=== PATIENT | male | born 2000 | race Caucasian/White ===

== ENCOUNTER 2021-04-22 07:12 | Emergency (ER) | payer OTHER, SELFPAY ==
[2021-04-22 07:45] VITALS: BP 123/66; PULSE 90; RESP 14; TEMP 36.6; O2SAT 98; BMI 22.6
[2021-04-22 08:12] LABS: COVID-19 Test Positive (Negative); IDNOW Serial# 9DD0AD1C
[2021-04-22 08:18] LABS: Strep A Nucleic Acid Negative (Negative)
--- NOTE | 2021-05-02 08:14 | ED.GENADULT ---
HPI - General Adult General Chief complaint: Headache Stated complaint: sore throat, headache, body ache Time Seen by Provider: 04/22/21 09:37 History of Present Illness HPI narrative: Patient complains of headache body aches and feeling fatigued for 2-3 days, headache is mild it was gradual in onset, he is not sure if he had a fever but did feel warm, he has no cough no shortness of breath no vomiting no vision changes no dizziness no weakness no fainting Related Data Allergies Allergy/AdvReac Type Severity Reaction Status Date / Time No Known Allergies Allergy Unverified 05/19/20 19:27 [No Known Allergies*] Review of Systems Review of Systems: Positive for headache, body aches, fatigue Negatives are no chills no dizziness no weakness no fainting no feeling faint no neck pain no stiff neck no chest pain no shortness of breath no cough no sputum no abdominal pain no nausea vomiting or diarrhea no dysuria no skin rash, no difficulty breathing or swallowing Yes all other systems are reviewed and are negative PMFSH Past Medical History Source: nursing notes reviewed Medical History (Updated 04/22/21 @ 09:37 by EDUIN Lombardo) No known health problems Social History Social History Advance Directives: No Advance Directives Information Provided: No Physical Exam Vital Signs: Vital Signs: Last Vital Signs Temp 98 F 04/22/21 07:45 Pulse 90 04/22/21 07:45 Resp 14 04/22/21 07:45 BP 123/66 04/22/21 07:45 Pulse Ox 98 04/22/21 07:45 Body Mass Index 22.6 General appearance no acute distress Head is normocephalic atraumatic The nose is not congested and there is no sinus tenderness The pharynx is clear with no redness swelling or exudate The chest is clear to auscultation bilateral with full symmetric equal breath sounds Heart no murmur Abdomen soft nontender Extremities full full range of motion x4 Skin no rash Course Course Course Narrative: Well-appearing patient is positive for COVID and is discharged with warnings to wear mask and keep a distance and off work Medical Decision Making Lab Data Labs: Lab Results 04/22/21 04/22/21 Range/Units 07:52 07:52 COVID-19 (BASIM) Positive A (Negative) COVID-19 Clin Com See Note S. pyogenes GrpA NOHEMI Negative (Negative) Discharge Plan Discharge Clinical Impression: COVID-19 Patient Disposition: Home, Self-Care Additional Instructions: COVID test was positive This is very contagious so you need to keep a distance from people and use a mask if you are around them You should be off work until all symptoms are gone and a repeat COVID test is negative Return any time any worse condition or any concerns Stand Alone Forms: Work/School Release Interventions: ED Discharge Assessment Last Done: 04/22/21 09:46 Discharge Date/Time: 04/22/21 09:46
== END 2021-04-22 09:46 | disposition home or self-care (01) ==
PROVIDERS: Emergency Provider Internal Medicine
DX: U07.1 COVID-19 (principal); R51.9 Headache, unspecified; J02.9 Acute pharyngitis, unspecified
CPT/HCPCS: 36415; 87635; 87651; 99283

== ENCOUNTER 2021-06-02 18:15 | Emergency (ER) | payer MEDICAID, SELFPAY ==
[2021-06-02 18:52] VITALS: BP 129/64; PULSE 90; RESP 16; TEMP 36.5; O2SAT 99; BMI 25.0
--- NOTE | 2021-06-02 19:52 | ED_ITS ---
HPI - Eye Problem General Chief complaint: Eye Problems Stated complaint: sty Time Seen by Provider: 06/02/21 19:43 Source: patient History of Present Illness HPI Narrative: Patient complaining of a swelling to the right lower lid. No fever no chills no changes in vision. Patient has no other complaints. On no medication. Symptoms been ongoing for few days. Related Data Allergies Allergy/AdvReac Type Severity Reaction Status Date / Time No Known Allergies Allergy Verified 06/02/21 19:29 [No Known Allergies*] Review of Systems Review of Systems: No changes in vision no nausea no vomiting no headache Yes all other systems are reviewed and are negative [facility] Past Medical History Attestation statement: The following information was validated with the patient. Medical History No known health problems Social History Social History Advance Directives: No Physical Exam Vital Signs: Vital Signs: Last Vital Signs Temp 97.7 F 06/02/21 18:52 Pulse 90 06/02/21 18:52 Resp 16 06/02/21 18:52 BP 129/64 06/02/21 18:52 Pulse Ox 99 06/02/21 18:52 Body Mass Index 25.0 Appearance: Alert. Oriented X3. No acute distress. Eyes: Pupils equal, round and reactive to light. Sclera is white. There is a stye noted in the right lower lid on the lateral aspect. ENT: Pharynx normal. Neck: Normal inspection. Neck supple. No lymph nodes noted. No crepitus CVS: Normal heart rate and rhythm. Pulses normal. Normal S1 and S2 Respiratory: No respiratory distress. Breath sounds normal. No Wheezing. No rales Abdomen: Soft and nontender. No rigidity. No distention. good BS x4 Skin: Skin warm and dry. Normal skin color. Normal skin turgor. Extremities: No lower extremity edema. Neurovascular intact to all extremities. No Lacerations. No Rash Neuro: Oriented X 3. No motor deficit. No sensory deficit. Moving all extermities. No slurred speech MDM - Eye Problem MDM Narrative Medical decision making narrative: Will ask patient to use warm compress. Close follow-up on an outpatient basis. Visual acuity grossly intact. No other complaints. Patient in stable condition. Discharge Plan Discharge Clinical Impression: Sty Patient Disposition: Home, Self-Care Instructions: Sharita (ED) Referrals: Carlos Armstrong [Physician] - 2 days Destiny Stuart MD [Primary Care Provider] - 2 days
== END 2021-06-02 20:45 | disposition home or self-care (01) ==
PROVIDERS: Emergency Provider Emergency Medicine Emergency Medical Services; PCP Internal Medicine
DX: H00.013 Hordeolum externum right eye, unspecified eyelid (principal)
CPT/HCPCS: 99283

== ENCOUNTER 2021-09-03 18:45 | Emergency (ER) | payer MEDICAID, SELFPAY ==
[2021-09-03 19:24] VITALS: BP 119/80; PULSE 118; RESP 20; TEMP 37.1; O2SAT 100; BMI 22.6
[2021-09-03 19:47] LABS: Strep A Nucleic Acid Negative (Negative)
[2021-09-03 20:06] LABS: COVID-19 Test Negative (Negative)
--- NOTE | 2021-09-03 21:45 | ED_ITS ---
HPI - General Adult General Chief complaint: General Medical Stated complaint: fever sore throat Time Seen by Provider: 09/03/21 21:40 Source: patient Mode of arrival: ambulatory Limitations: no limitations History of Present Illness HPI narrative: Patient comes to the emergency room complaining of sore throat starting today. Patient also complaining of headache, mild body aches, subjective fever and chills. Patient denies chest pain, no shortness of breath, no calf pain. Related Data Allergies Allergy/AdvReac Type Severity Reaction Status Date / Time No Known Allergies Allergy Verified 06/02/21 19:29 [No Known Allergies*] Review of Systems Review of Systems: Constitutional : No Weight loss, complaining of subjective fever, chills, fatigue and generalized malaise ENT/Mouth : No Hearing loss, No Ear Pain, No Nasal Congestion, No Sinus Pain, No Hoarseness, complaining of sore throat, No Rhinorrhea, No Swallowing Difficulty Eyes: No Eye Pain, No Swelling, No Redness, No Foreign Body, No Discharge, No Vision Changes Cardiovascular : No Chest Pain, No SOB, No Dyspnea on Exertion, No Orthopnea, No Edema, No Palpitations Respiratory : No Cough, No Sputum, No Wheezing, No Smoke Exposure, No Dyspnea Gastrointestinal : No Nausea, No Vomiting, No Diarrhea, No Constipation, No abdominal Pain, No Hematochezia, No Melena Genitourinary : no irregular bleeding, No Dysuria, No Urinary Frequency, No Hematuria, No Urinary Incontinence, No Urgency, No Flank Pain, No Urinary Flow Changes, No Hesitancy Musculoskeletal : No joint pain, No Myalgias, No Joint Swelling Skin : No Skin Lesions, No rash Neuro : No Weakness, No Numbness, No Paresthesias, No Loss of Consciousness, No Dizziness, complaining of Headache Psych : No Anxiety/Panic, No Depression, No SI/HI/AH/VH, No Social Issues, Heme/Lymph: No Bruising, No Bleeding,No Lymphadenopathy Endocrine : No Polyuria, No Polydipsia, No Temperature Intolerance [facility] Past Medical History Medical History No known health problems Social History Social History Advance Directives: No Advance Directives Information Provided: Yes Physical Exam Vital Signs: Vital Signs: Last Vital Signs Temp 98.7 F 09/03/21 19:24 Pulse 118 H 09/03/21 19:24 Resp 20 09/03/21 19:24 BP 119/80 09/03/21 19:24 Pulse Ox 100 09/03/21 19:24 BMI result Body Mass Index 22.6 Const: Other: Appearance: Alert. Oriented X3. No acute distress. Well- appearing Eyes: Pupils equal, round and reactive to light. ENT: Pharynx erythematous, no vesicles, no exudates or abscesses. Neck: Normal inspection. Neck supple. No lymph nodes noted. No crepitus CVS: Normal heart rate and rhythm. Pulses normal. Normal S1 and S2 Respiratory: No respiratory distress. Breath sounds normal. No Wheezing. No rales Abdomen: Soft and nontender. No rigidity. No distention. Skin: Skin warm and dry. Normal skin color. Normal skin turgor. Extremities: No lower extremity edema. No Lacerations. No Rash Neuro: Oriented X 3. No motor deficit. No sensory deficit. Moving all extermities. No slurred speech. Course Course Course Narrative: Patient likely having viral pharyngitis. COVID and strep tests are negative. Patient was given 1 dose of dexamethasone p.o. and viscous lidocaine, 1 dose of Tylenol 650 mg Medical Decision Making Lab Data Labs: Lab Results 09/03/21 09/03/21 Range/Units 19:30 19:31 COVID-19 (BASIM) Negative (Negative) COVID-19 Clin Com See Note S. pyogenes GrpA NOHEMI Negative (Negative) Discharge Plan Discharge Clinical Impression: Acute viral pharyngitis Patient Disposition: Home, Self-Care Instructions: Pharyngitis (ED) Additional Instructions: Please follow-up with your primary care physician tomorrow. If you have any worsening or new symptoms, please return to the emergency room or call 911 Stand Alone Forms: Work/School Release
[2021-09-03] MEDS: dexAMETHasone sod phosphate 4 MG/ML VIAL 6 MG PO (22:04)
[2021-09-03] MEDS: Acetaminophen 325 MG TABLET 650 MG PO (22:04)
[2021-09-03] MEDS: Lidocaine HCl Viscous 2 % 15 ML SOLUTION MUCOUS MEM (22:04)
== END 2021-09-03 22:09 | disposition home or self-care (01) ==
PROVIDERS: Emergency Provider Emergency Medicine; PCP Internal Medicine
DX: J02.8 Acute pharyngitis due to other specified organisms (principal); Z20.822 Contact with and (suspected) exposure to COVID-19
CPT/HCPCS: 36415; 87635; 87651; 99283; J1100

== ENCOUNTER 2021-09-11 18:10 | Emergency (ER) | payer MEDICAID, SELFPAY | END 2021-09-11 18:52 | disposition left against medical advice (07) | PROVIDERS: Emergency Provider Emergency Medicine; PCP Internal Medicine | DX: R05.9 Cough, unspecified (principal); R06.02 Shortness of breath ==

== ENCOUNTER 2021-09-12 07:40 | Emergency (ER) | payer MEDICAID, SELFPAY ==
--- NOTE | ~2021-09-12 | XR_ITS ---
EXAMINATION: XR CHEST CLINICAL INFORMATION: Cough. COMPARISON: None. TECHNIQUE: 2 views of the chest were obtained. FINDINGS: No significant abnormality is noted involving the heart, lungs, mediastinum, bony thorax or soft tissues. XR/XR chest 2V IMPRESSION: No acute cardiopulmonary findings.
[2021-09-12 08:02] VITALS: BP 129/58; PULSE 88; RESP 18; TEMP 36.8; O2SAT 99; BMI 23.0
[2021-09-12 08:31] LABS: COVID-19 Test Negative (Negative); IDNOW Serial# 9DD0AD1C
--- NOTE | 2021-09-12 08:34 | ED.URI ---
HPI - URI/Sore Throat General Chief Complaint: Upper Respiratory Symptoms Stated Complaint: SOB cough Time Seen by Provider: 09/12/21 07:59 Source: patient Mode of arrival: ambulatory Limitations: no limitations History of Present Illness HPI Narrative: THIS IS A HEALTHY 20 YEARS OLD THE PATIENT PRESENTED TO THE EMERGENCY DEPARTMENT WITH A CHIEF COMPLAINT OF COUGH CONGESTION X2 DAYS, DENIES ANY FEVER CHILLS VOMITING MD elicited complaint: cough Onset (ago): day(s) (2) Consistency: constant Severity: moderate Description of mucous: clear Able to tolerate fluids by mouth: Yes Exacerbating factors: nothing Relieving factors: nothing Associated symptoms: denies other symptoms Related Data Allergies Allergy/AdvReac Type Severity Reaction Status Date / Time No Known Allergies Allergy Verified 06/02/21 19:29 [No Known Allergies*] Review of Systems Review of Systems: Yes all other systems are reviewed and are negative Constitutional: Constitutional: Reports no additional constitutional complaints, Denies chills and Denies fever(s) Cardiovascular: Cardiovascular: Reports no additional cardiovascular complaints Respiratory: Respiratory: Reports cough, Denies stridor and Denies wheezing Allergic/Immunologic: Allergic/Immunologic: Denies wheezing PMFSH Past Medical History Medical History No known health problems Social History Social History Advance Directives: No Advance Directives Information Provided: No Physical Exam Vital Signs: Vital Signs: Last Vital Signs Temp 98.2 F 09/12/21 08:02 Pulse 88 09/12/21 08:02 Resp 18 09/12/21 08:02 BP 129/58 L 09/12/21 08:02 Pulse Ox 99 09/12/21 08:02 BMI result Body Mass Index 23.0 Const: General: cooperative, healthy appearing, comfortable, no acute distress and well developed Nutritional Appearance: average body habitus Orientation/consciousness: patient oriented x3 HENMT: Head: Yes normal to inspection Face and sinus: Yes normal facial exam Mouth: Normal oral and palatal mucosa present Throat: Yes posterior oropharynx normal Neck: Neck: Yes normal visual inspection and Yes full ROM Chest: Chest palpation & inspection: normal inspection of the chest Resp: Effort & Inspection: normal respiratory effort Auscultation: clear to auscultation bilaterally Neuro: General: patient oriented x3 Course Reevaluation(s) Reevaluation #1: covid negative,CXR normal ,02 Sat 99% afebrile non toxic OK to d/c home MDM - URI/Sore Throat Lab Data Labs: Lab Results 09/12/21 Range/Units 08:08 COVID-19 (BASIM) Negative (Negative) COVID-19 Clin Com See Note Imaging Data Chest x-ray: Radiologist's impression: EXAMINATION: XR CHEST CLINICAL INFORMATION: Cough. COMPARISON: None. TECHNIQUE: 2 views of the chest were obtained. FINDINGS: No significant abnormality is noted involving the heart, lungs, mediastinum, bony thorax or soft tissues. XR/XR chest 2V IMPRESSION: No acute cardiopulmonary findings. Dictated By: Preethi Shea Signed By: <Electronically signed by Preethi? Monse in OV> 09/12/21 0845 DD/ 08 Discharge Plan Discharge Clinical Impression: Upper respiratory infection Patient Disposition: Home, Self-Care Instructions: Upper Respiratory Infection (ED) Referrals: [facility] [Primary Care Provider] - 2 days Stand Alone Forms: Work/School Release
== END 2021-09-12 09:38 | disposition home or self-care (01) ==
PROVIDERS: Emergency Provider Emergency Medicine
DX: J06.9 Acute upper respiratory infection, unspecified (principal); R06.02 Shortness of breath; R50.9 Fever, unspecified; R05.9 Cough, unspecified; Z20.822 Contact with and (suspected) exposure to COVID-19
CPT/HCPCS: 71046; 87635; 99283

== ENCOUNTER 2022-06-01 20:15 | Emergency (ER) | payer MEDICAID, SELFPAY ==
--- NOTE | ~2022-06-01 | CT_ITS ---
EXAMINATION: CT ABDOMEN AND PELVIS WITHOUT CONTRAST CLINICAL INFORMATION: Evaluate for obstruction. Pain. History of gastroschisis. COMPARISON: None TECHNIQUE: Multidetector volumetric imaging was performed from the superior aspect of the liver through the pubic symphysis. Sagittal and coronal reformatted images were obtained on the technologist's workstation. This CT examination was performed using dose optimization techniques as appropriate, variously including the following: *Automated exposure control *Adjustment of mA and/or kV according to patient size (this includes techniques or standardized protocols for targeted exams where dose is matched to indication/reason for exam; i.e. extremities or head) *Use of iterative reconstruction technique DLP: 402 mGy-cm FINDINGS: LUNG BASES: The visualized lung bases are unremarkable. LIVER, GALLBLADDER, AND BILIARY TREE: The liver is normal in size, shape, and attenuation. No focal hepatic lesion or biliary ductal dilatation is present. The gallbladder is unremarkable with no evidence of radiopaque gallstones, gallbladder wall thickening, or obvious pericholecystic inflammatory changes. PANCREAS: Unremarkable. SPLEEN: Unremarkable. ADRENAL GLANDS: Unremarkable. KIDNEYS AND URETERS: The kidneys are normal in size, shape, and attenuation. No hydronephrosis, hydroureter, or calculi seen. No perinephric stranding. BLADDER: Unremarkable. GASTROINTESTINAL TRACT: The colon is located in the left hemiabdomen where the small bowel is located in the right hemiabdomen. The duodenum does not clearly cross midline. No intestinal obstruction. Haziness of the small bowel mesentery within the right hemiabdomen. Normal appendix. Stomach unremarkable. ABDOMINAL WALL: Previous ventral hernia repair. LYMPH NODES: Normal. VASCULAR: Unremarkable. PELVIC VISCERA: Unremarkable. OSSEOUS STRUCTURES: No acute or suspicious osseous or maladies. CT/CT abdomen pelvis wo IV con IMPRESSION: * Intestinal malrotation. No evidence of obstruction or volvulus. * Haziness of the small bowel mesentery in the right hemiabdomen could represent a mild enteritis, or mesenteric panniculitis.
[2022-06-01 20:59] VITALS: BP 105/49; PULSE 90; RESP 18; TEMP 37.2; O2SAT 99; BMI 23.3
[2022-06-01 21:12] LABS: MANUAL DIFF FLAG NO
[2022-06-01 21:15] LABS: Appearance Urine Cloudy; Color Urine Yellow; Glucose Urine UA Negative (Negative); Leukocyte Esterase Urine Negative (Negative); Nitrite Urine Negative (Negative); Urine Blood Negative (Negative); Urine Ketones Negative (Negative); Urine Protein Negative (Neg-Trace)
[2022-06-01 21:15] LABS: Basophils Percent Auto 0.5 % (0-2); Eosinophils Absolute Auto 0.2 X10*3/uL (0.0-0.4); Eosinophils Percent Auto 3.1 % (0-4); Hematocrit 45.7 % (42.0-52.0); Hemoglobin 15.6 g/dl (14.0-18.0); Imm Gran Abs Auto 0.04 X10*3/uL (0.00-0.03); Imm Gran Pct Auto 0.5 % (0.0-0.4); Lymphocytes Absolute Auto 1.5 X10*3/uL (1.2-4.9); Lymphocytes Percent Auto 19.6 % (20-40); Mean Corpuscular HGB Conc 34.1 g/dl (31.0-36.0); Mean Corpuscular Hemoglobin 29.9 pg (27.0-33.0); Mean Corpuscular Volume 87.7 fL (80.0-98.0); Mean Platelet Volume 10.3 fL (9.4-12.4); Monocytes Absolute Auto 0.8 X10*3/uL (0.1-1.2); Monocytes Percent Auto 10.1 % (2-11); Neutrophils Absolute Auto 5.1 x10*3/uL (2.0-8.3); Neutrophils Percent Auto 66.2 % (45-73); Platelet Count 303 X10*3/uL (160-400); Red Blood Count 5.21 X10*6/uL (4.60-5.80); Red Cell Distribution Width 12.1 % (11.0-16.0); White Blood Count 7.7 X10*3/uL (4.8-10.8)
[2022-06-01 21:38] LABS: Alanine Aminotransferase 30 U/L (0-40); Albumin Level 4.5 g/dL (3.5-5.0); Alkaline Phosphatase 98 U/L (39-117); Anion Gap 15 (12-20); Aspartate Amino Transferase 20 U/L (5-37); Bilirubin Direct < 0.2 mg/dL (0.0-0.5); Bilirubin Total 0.3 mg/dL (0.0-1.0); Blood Urea Nitrogen 18 mg/dL (9-16); Calcium 9.9 mg/dL (8.4-10.2); Carbon Dioxide 25 mmol/L (22-29); Chloride 105 mmol/L (96-108); Creatinine Clr Calc Pharmacy 112.6; Estimated Glomerular Filt Rate > 60; Glucose Random 84 mg/dL (60-115); Lipase 33 U/L (8-78); Potassium 3.8 mmol/L (3.3-5.1); Sodium 141 mmol/L (135-145); Total Protein 7.5 g/dL (6.5-8.0)
[2022-06-02 01:44] VITALS: BP 130/71; PULSE 78; RESP 16; TEMP 36.8; O2SAT 100
--- NOTE | 2022-06-02 02:43 | ED.ABDPAIN ---
HPI - Abdominal Pain General Chief Complaint: Abdominal Pain Stated Complaint: Abd pain Time Seen by Provider: 06/02/22 02:37 Source: patient Mode of arrival: ambulatory Limitations: no limitations History of Present Illness HPI narrative: patient comes to emergency room complaining of diffuse abdominal pain. Patient states that he has had constipation and burning abdominal pain. [facility], he was diagnosed with GERD/gastritis, given a prescription of omeprazole. Patient states that the abdominal pain / distension gets very severe and he cannot work due to the pain. Patient has history of gastroschisis, does not have history of small-bowel obstructions in the past. Related Data Previous Rx's Medication Instructions Recorded polyethylene glycol 3350 17 17 g PO DAILY #119 grams 06/02/22 gram/dose oral powder (Miralax) Allergies Allergy/AdvReac Type Severity Reaction Status Date / Time No Known Allergies Allergy Verified 06/02/21 19:29 [No Known Allergies*] Review of Systems Review of Systems Constitutional : No Weight loss, No Fever, No Chills, No Night Sweats, No Fatigue, No Malaise ENT/Mouth : No Hearing loss, No Ear Pain, No Nasal Congestion, No Sinus Pain, No Hoarseness, No sore throat, No Rhinorrhea, No Swallowing Difficulty Eyes: No Eye Pain, No Swelling, No Redness, No Foreign Body, No Discharge, No Vision Changes Cardiovascular : No Chest Pain, No SOB, No Dyspnea on Exertion, No Orthopnea, No Edema, No Palpitations Respiratory : No Cough, No Sputum, No Wheezing, No Smoke Exposure, No Dyspnea Gastrointestinal : No Nausea, No Vomiting, No Diarrhea, Complaining of constipation, diffuse abdominal pain and distension Genitourinary : no irregular bleeding, No Dysuria, No Urinary Frequency, No Hematuria, No Urinary Incontinence, No Urgency, No Flank Pain, No Urinary Flow Changes, No Hesitancy Musculoskeletal : No joint pain, No Myalgias, No Joint Swelling Skin : No Skin Lesions, No rash Neuro : No Weakness, No Numbness, No Paresthesias, No Loss of Consciousness, No Dizziness, No Headache Psych : No Anxiety/Panic, No Depression, No SI/HI/AH/VH, No Social Issues, Heme/Lymph: No Bruising, No Bleeding,No Lymphadenopathy Endocrine : No Polyuria, No Polydipsia, No Temperature Intolerance [facility] Past Medical History Medical History (Updated 06/02/22 @ 02:49 by Miracle Vee MD) Gastroschisis, congenital No known health problems Social History Social History Advance Directives: No Advance Directives Information Provided: Yes Physical Exam ED Vital Signs: Vital Signs - 24 hr 06/01/22 20:59 06/02/22 01:44 Temperature 99.0 F 98.2 F Pulse Rate 90 78 Respiratory Rate 18 16 Blood Pressure 105/49 L 130/71 Pulse Oximetry 99 100 Oxygen Delivery Method Room Air Room Air BMI result Body Mass Index 23.3 Const Other: Appearance: Alert. Oriented X3. No acute distress. Eyes: Pupils equal, round and reactive to light. ENT: Pharynx normal. Neck: Normal inspection. Neck supple. No lymph nodes noted. No crepitus CVS: Normal heart rate and rhythm. Pulses normal. Normal S1 and S2 Respiratory: No respiratory distress. Breath sounds normal. No Wheezing. No rales Abdomen: Soft ,no rigidity, no distention, [id number] discomfort on palpation in all quadrants, no rebound, no guarding Skin: Skin warm and dry. Normal skin color. Normal skin turgor. Extremities: No lower extremity edema. No Lacerations. No Rash Neuro: Oriented X 3. No motor deficit. No sensory deficit. Moving all extremities. No slurred speech. CN 2 through 12 grossly intact Psych: calm, cooperative, normal affect Course Course Course Narrative: patient's labs are unremarkable. Due to patient's history gastroschisis, we will go ahead and order a CT scan to rule out obstruction. Patient already has and prescription of omeprazole. Is likely that patient has constipation given his history. CT scan is pending. Sign-out given to Dr. Carmela MESSINA - Abdominal Pain Lab Data Result diagrams: 06/01/22 21:03 06/01/22 21:03 Labs: Lab Results 06/01/22 06/01/22 06/01/22 Range/Units 21:03 21:03 21:07 WBC 7.7 (4.8-10.8) X10*3/uL RBC 5.21 (4.60-5.80) X10*6/uL Hgb 15.6 (14.0-18.0) g/dl Hct 45.7 (42.0-52.0) % MCV 87.7 (80.0-98.0) fL MCH 29.9 (27.0-33.0) pg MCHC 34.1 (31.0-36.0) g/dl RDW 12.1 (11.0-16.0) % Plt Count 303 (160-400) X10*3/uL MPV 10.3 (9.4-12.4) fL Immature Gran % (Auto) 0.5 H (0.0-0.4) % Neut % (Auto) 66.2 (45-73) % Lymph % (Auto) 19.6 L (20-40) % [place] % (Auto) 10.1 (2-11) % Eos % (Auto) 3.1 (0-4) % Baso % (Auto) 0.5 (0-2) % Lymph # (Auto) 1.5 (1.2-4.9) X10*3/uL [place] # (Auto) 0.8 (0.1-1.2) X10*3/uL Eos # (Auto) 0.2 (0.0-0.4) X10*3/uL Baso # (Auto) 0.0 (0.0-0.2) X10*3/uL Abs Immat Gran (auto) 0.04 H (0.00-0.03) X10*3/uL Absolute Neuts (auto) 5.1 (2.0-8.3) x10*3/uL Absolute Nucleated RBC 0.000 (0.0-0.012) X10*3/uL Nucleated RBC % (auto) 0.0 (0.0-0.2) /100WBC Sodium 141 (135-145) mmol/L Potassium 3.8 (3.3-5.1) mmol/L Chloride 105 (96-108) mmol/L Carbon Dioxide 25 (22-29) mmol/L Anion Gap 15 (12-20) BUN 18 H (9-16) mg/dL Creatinine 0.91 (0.5-1.4) mg/dL Estim Creat Clear Calc 112.6 Estimated GFR > 60 Random Glucose 84 (60-115) mg/dL Calcium 9.9 (8.4-10.2) mg/dL Total Bilirubin 0.3 (0.0-1.0) mg/dL Direct Bilirubin < 0.2 (0.0-0.5) mg/dL AST 20 (5-37) U/L ALT 30 (0-40) U/L Alkaline Phosphatase 98 (39-117) U/L Total Protein 7.5 (6.5-8.0) g/dL Albumin 4.5 (3.5-5.0) g/dL Lipase 33 (8-78) U/L Urine Color Yellow Urine Appearance Cloudy Urine pH 7.0 (5.0-9.0) Ur Specific [place] 1.020 (1.005-1.025) Urine Protein Negative (Neg-Trace) mg/dL Urine Glucose (UA) Negative (Negative) mg/dL Urine Ketones Negative (Negative) mg/dL Urine Blood Negative (Negative) Urine Nitrite Negative (Negative) Ur Leukocyte Esterase Negative (Negative) Discharge Plan Discharge Clinical Impression: Constipation, Gastritis Patient Disposition: Still a Patient Instructions: Gastritis (ED), Constipation (ED), Diet for Stomach Ulcers and Gastritis (ED) Additional Instructions: Please follow-up with your primary care physician tomorrow. If you have any worsening or new symptoms, please return to the emergency room or call 911 Prescriptions: New polyethylene glycol 3350 [Miralax] 17 gram/dose powder 17 g PO DAILY Qty: 119 0RF Rx Instructions: drink plenty of water with this medication and throughout the day Interventions: LWBS Worksheet Last Done: 06/01/22 23:34
[2022-06-02 04:21] VITALS: BP 116/70; PULSE 75; RESP 18; O2SAT 99
[2022-06-02 05:02] VITALS: BP 108/63; PULSE 74; RESP 16; TEMP 36.8; O2SAT 95
== END 2022-06-02 05:08 | disposition home or self-care (01) ==
PROVIDERS: Emergency Medicine; Emergency Provider Student in an Organized Health Care Education/Training Program
DX: K29.70 Gastritis, unspecified, without bleeding (principal); K59.00 Constipation, unspecified; Z79.899 Other long term (current) drug therapy
CPT/HCPCS: 36415; 74176; 80053; 81003; 82248; 83690; 85025; 99283; 99284

== ENCOUNTER 2022-12-29 10:41 | Emergency (ER) | payer MEDICAID, SELFPAY ==
[2022-12-29 10:45] VITALS: BP 134/68; PULSE 82; RESP 18; TEMP 36.8; O2SAT 98; BMI 23.3
--- NOTE | 2022-12-29 10:47 | ED.SKABFB ---
HPI - Skin/Abscess/Foreign Bdy General Chief complaint: Skin/Abscess/Foreign Body <EDUIN Forrester Last Filed: 12/29/22 10:50> Stated complaint: boil l elbow <EDUIN Forrester Last Filed: 12/29/22 10:50> Time Seen by Provider: 12/29/22 10:51 <EDUIN Forrester Last Filed: 12/29/22 10:50> Source: patient <EDUIN Arshad Last Filed: 12/29/22 11:13> Mode of arrival: ambulatory <EDUIN Arshad Last Filed: 12/29/22 11:13> Limitations: no limitations <EDUIN Arshad Last Filed: 12/29/22 11:13> History of Present Illness HPI narrative: 22-year-old male without significant medical history presents to the emergency department for evaluation of redness below his left elbow it has been going on for few days it started off as a small pimple, he popped it and since then it has been red, swollen and slightly tender. Patient denies fevers, chills, numbness, tingling, denies bug bites, nausea, vomiting, headache, vision changes, dizziness and weakness. <EDUIN Arshad Last Filed: 12/29/22 11:13> Related Data Home medications: Previous Rx's Medication Instructions Recorded polyethylene glycol 3350 17 17 g PO DAILY #119 grams 06/02/22 gram/dose oral powder (Miralax) cephalexin 500 mg tablet 500 mg PO Q6H 10 days #40 tabs 12/29/22 doxycycline hyclate 100 mg capsule 100 mg PO BID 10 days #20 caps 12/29/22 <EDUIN Forrester Last Filed: 12/29/22 10:50> Allergies/Adverse reactions: Allergies Allergy/AdvReac Type Severity Reaction Status Date / Time No Known Allergies Allergy Verified 06/02/21 19:29 [No Known Allergies*] <EDUIN Forrester Last Filed: 12/29/22 10:50> Review of Systems Review of Systems: Constitutional : No Fever, No Chills, Cardiovascular : No Chest Pain, No SOB Respiratory : No Dyspnea Gastrointestinal : No abdominal pain Musculoskeletal : No Joint Swelling Skin : + rash, No skin laceration Neuro : No Weakness, No Numbness Psych : No SI/HI <EDUIN Arshad - Last Filed: 12/29/22 11:13> Yes all other systems are reviewed and are negative <EDUIN Arshad - Last Filed: 12/29/22 11:13> [facility] [place] Past Medical History Attestation statement: The following information was validated with the patient. <EDUIN Arshad - Last Filed: 12/29/22 11:13> Source: old records reviewed and nursing notes reviewed <EDUIN Arshad - Last Filed: 12/29/22 11:13> Medical History: Medical History Gastroschisis, congenital No known health problems <EDUIN Forrester - Last Filed: 12/29/22 10:50> Social History Social History: Social History Advance Directives: No Advance Directives Information Provided: No <EDUIN Forrester - Last Filed: 12/29/22 10:50> Physical Exam Vital Signs: Vital Signs: Last Vital Signs Temp 98.3 F 12/29/22 10:45 Pulse 82 12/29/22 10:45 Resp 18 12/29/22 10:45 BP 134/68 12/29/22 10:45 Pulse Ox 98 12/29/22 10:45 O2 Del Method Room Air 12/29/22 10:45 BMI result Body Mass Index 23.3 <EDUIN Forrester - Last Filed: 12/29/22 10:50> Vital Signs: Last Vital Signs Temp 98.3 F 12/29/22 10:45 Pulse 82 12/29/22 10:45 Resp 18 12/29/22 10:45 BP 134/68 12/29/22 10:45 Pulse Ox 98 12/29/22 10:45 O2 Del Method Room Air 12/29/22 10:45 BMI result Body Mass Index 23.3 vss <EDUIN Arshad - Last Filed: 12/29/22 11:13> Appearance: Alert.? Oriented X3.? No acute distress.? Head: Normocephalic, atraumatic, no step-offs or deformities Eyes: Pupils equal, round and reactive to light.? CVS: Normal heart rate and rhythm.? Pulses normal.? Respiratory: No respiratory distress.? Breath sounds normal.? Abdomen: Soft and nontender.? Skin: Skin warm and dry.? Normal skin color.? Normal skin turgor.?+ there is a 4 cm very 4 cm area of erythema 2 cm below the left olecranon, there appears to be induration in the center, possible forming abscess. No evidence of draining. Extremities: No lower extremity edema.? No calf ttp. 5/5 strength to bilateral upper and lower extremities. Full range of motion to bilateral elbows, pain-free. Neuro: Oriented X 3.? No motor deficit.? No sensory deficit. CN 2-12 intact <EDUIN Arshad - Last Filed: 12/29/22 11:13> Course Course Course Narrative: RME - This is a 22 yo M who presents to the ER with complaints of left arm ?abscess x 2 days. No recent injury or trauma. No fevers. has had some drainage from the area. VSS, patient is afebrile. Pt stable to return to the waiting room until a room becomes available. <EDUIN Forrester - Last Filed: 12/29/22 10:50> Reevaluation(s) Reevaluation #1: Educated patient on diagnosis and treatment plan, answered all question, patient verbalizes understanding. At this time patient will be discharged home, advised to return with new or worsening symptoms. Educated on worrisome signs and symptoms and when to return. At this time I feel comfortable discharge home. <EDUIN Arshad - Last Filed: 12/29/22 11:13> Time: 11:13 <EDUIN Arshad - Last Filed: 12/29/22 11:13> Medical Decision Making Medical Decision Making MDM Narrative: 1112 22-year-old male presents with concerns that he may have a developing abscess to the left elbow been going on for the past few days worsening. Physical exam significant for there is a 4 cm very 4 cm area of erythema 2 cm below the left olecranon, there appears to be induration in the center, possible forming abscess. No evidence of draining. Likely cellulitis versus developing abscess. No fluctuance on exam therefore low suspicion for current abscess that requires draining. No signs of septic joint, threatened limb, neurovascular compromise. Unlikely Hakeem Samson syndrome, TPN, gangrene. Plan, p.o. antibiotics home, warm compresses and PCP follow-up <EDUIN Arshad Last Filed: 12/29/22 11:13> Differential Diagnosis Differential Diagnoses: The differential diagnosis associated with the presentation includes <EDUIN Arshad Last Filed: 12/29/22 11:13> Likely cellulitis versus developing abscess. No fluctuance on exam therefore low suspicion for current abscess that requires draining. No signs of septic joint, threatened limb, neurovascular compromise. Unlikely Hakeem Samson syndrome, TPN, gangrene. <EDUIN Arshad Last Filed: 12/29/22 11:13> Admission/Observation Consideration of admission/observation: Escalation of care including admission/observation considered <EDUIN Arshad - Last Filed: 12/29/22 11:13> Prescription Management I considered prescription management with: Antibiotic <EDUIN Arshad Last Filed: 12/29/22 11:13> Core Measures AMI core measures followed: Yes <EDUIN Arshad - Last Filed: 12/29/22 11:13> Measure exclusions: not indicated <EDUIN Arshad Last Filed: 12/29/22 11:13> Discharge Plan Discharge Clinical Impression: Cellulitis <EDUIN Forrester Last Filed: 12/29/22 10:50> Patient Disposition: Home, Self-Care <EDUIN Forrester Last Filed: 12/29/22 10:50> Instructions: Cellulitis (ED), Warm Compress or Soak (ED) <EDUIN Forrester Last Filed: 12/29/22 10:50> Additional Instructions: Take your medications as prescribed. If you were prescribed antibiotics today, it is important that you take your medication to their entirety, do not skip any doses, do not finish them early. Follow-up with your primary care provider this week. Return to the emergency department with new or worsening symptoms. Such as fevers, chills, chest pain, shortness of breath, nausea, vomiting, dizziness, headache, vision changes, lethargy In case of emergency call 911 Apply warm compresses to the affected area 2 to 3 times a day. Return if redness worsens and goes beyond the marker Doxycycline antibiotic sent to her pharmacy it should be taken with food, please avoid direct sunlight with this antibiotic it can cause an adverse skin reaction and skin sensitivity <EDUIN Forrester - Last Filed: 12/29/22 10:50> Prescriptions: New doxycycline hyclate 100 mg capsule 100 mg PO BID 10 Days Qty: 20 0RF cephalexin 500 mg tablet 500 mg PO Q6H 10 Days Qty: 40 0RF No Action polyethylene glycol 3350 [Miralax] 17 gram/dose powder 17 g PO DAILY Qty: 119 0RF Rx Instructions: drink plenty of water with this medication and throughout the day <EDUIN Forrester Last Filed: 12/29/22 10:50> Referrals: [facility] [Primary Care Provider] - 2 days <EDUIN Forrester Last Filed: 12/29/22 10:50>
== END 2022-12-29 12:01 | disposition home or self-care (01) ==
PROVIDERS: Emergency Provider Emergency Medicine
DX: L03.114 Cellulitis of left upper limb (principal); Z79.899 Other long term (current) drug therapy
CPT/HCPCS: 99282; 99283

== ENCOUNTER 2023-03-22 06:55 | Emergency (ER) | payer MEDICAID, SELFPAY ==
--- NOTE | ~2023-03-22 | XR_ITS ---
EXAMINATION: XR CHEST CLINICAL INFORMATION: Fever and cough. Question pneumonia. COMPARISON: 09/12/2021 TECHNIQUE: Frontal view of the chest was obtained. FINDINGS: Cardiac leads overlie the chest. The lungs are well expanded. There is no focal consolidation, edema, or effusion. No pneumothorax. The cardiomediastinal silhouette is within normal limits. No acute osseous abnormality. XR/XR chest 1V IMPRESSION: Clear lungs.
[2023-03-22 07:01] VITALS: BP 136/71; PULSE 131; RESP 20; TEMP 39; O2SAT 96
[2023-03-22 07:07] VITALS: BP 116/69; PULSE 125; PULSE 127; RESP 18; TEMP 39.6; O2SAT 97; BMI 23.7
--- NOTE | 2023-03-22 07:18 | PC.NURSE ---
Alert and oriented, arrived from home complaining of weakness, fatigue, total body aches, fever, sore throat, and cough. Denies sob, headache, or chest pain. Denies sick contact. HR 130, provider aware. sinus tachy on monitor. Strep/flu/covid swabs obatained
[2023-03-22 07:30] LABS: COVID-19 Test Positive (Negative); IDNOW Serial# BCCEAD1C
[2023-03-22 07:37] LABS: IDNOW Serial# 08D9AD1C; Strep A Nucleic Acid Negative (Negative)
[2023-03-22 07:42] LABS: MANUAL DIFF FLAG NO
[2023-03-22 07:44] LABS: Basophils Percent Auto 0.4 % (0-2); Eosinophils Absolute Auto 0.1 X10*3/uL (0.0-0.4); Eosinophils Percent Auto 1.1 % (0-4); Hematocrit 49.7 % (42.0-52.0); Hemoglobin 16.8 g/dl (14.0-18.0); Imm Gran Abs Auto 0.04 X10*3/uL (0.00-0.03); Imm Gran Pct Auto 0.6 % (0.0-0.4); Lymphocytes Absolute Auto 0.4 X10*3/uL (1.2-4.9); Lymphocytes Percent Auto 5.7 % (20-40); Mean Corpuscular HGB Conc 33.8 g/dl (31.0-36.0); Mean Corpuscular Hemoglobin 29.3 pg (27.0-33.0); Mean Corpuscular Volume 86.7 fL (80.0-98.0); Mean Platelet Volume 9.9 fL (9.4-12.4); Monocytes Absolute Auto 0.8 X10*3/uL (0.1-1.2); Monocytes Percent Auto 11.1 % (2-11); Neutrophils Absolute Auto 5.8 x10*3/uL (2.0-8.3); Neutrophils Percent Auto 81.1 % (45-73); Platelet Count 283 X10*3/uL (160-400); Red Blood Count 5.73 X10*6/uL (4.60-5.80); White Blood Count 7.2 X10*3/uL (4.8-10.8)
[2023-03-22] MEDS: 0.9 % Sodium Chloride 1,000 ML 999 ML IV (07:47)
[2023-03-22] MEDS: Acetaminophen 325 MG TABLET 975 MG PO (07:50)
[2023-03-22] MEDS: Ketorolac Tromethamine 30 MG/ML VIAL IVPUSH (07:50)
[2023-03-22 08:04] LABS: Alanine Aminotransferase 36 U/L (0-40); Albumin Level 5.1 g/dL (3.5-5.0); Alkaline Phosphatase 108 U/L (39-117); Anion Gap 16 (12-20); Aspartate Amino Transferase 27 U/L (5-37); Bilirubin Total 0.4 mg/dL (0.0-1.0); Blood Urea Nitrogen 11 mg/dL (9-16); Calcium 10.7 mg/dL (8.4-10.2); Carbon Dioxide 25 mmol/L (22-29); Chloride 99 mmol/L (96-108); Creatinine Clr Calc Pharmacy 94.9; Estimated Glomerular Filt Rate > 60; Glucose Random 105 mg/dL (60-115); Potassium 3.6 mmol/L (3.3-5.1); Sodium 136 mmol/L (135-145); Total Protein 9.3 g/dL (6.5-8.0)
[2023-03-22 08:17] LABS: IDNOW Serial# 9DB6401D; Influenza A Negative (Negative); Influenza B2 Negative (Negative)
--- NOTE | 2023-03-22 10:11 | ED_ITS ---
HPI - General Adult General Chief complaint: General Medical Stated complaint: Fever/Sore throat Time Seen by Provider: 03/22/23 07:06 Source: patient Mode of arrival: ambulatory Limitations: no limitations History of Present Illness HPI narrative: 22-year-old male healthy presents to ED for coughing, fever, sore throat since this morning. Patient states a girlfriend has similar symptoms. Patient denies any chest pain or shortness of breath. Patient denies any recent travel outside the country. Related Data Previous Rx's Medication Instructions Recorded polyethylene glycol 3350 17 17 g PO DAILY #119 grams 06/02/22 gram/dose oral powder (Miralax) cephalexin 500 mg tablet 500 mg PO Q6H 10 days #40 tabs 12/29/22 doxycycline hyclate 100 mg capsule 100 mg PO BID 10 days #20 caps 12/29/22 naproxen 500 mg tablet 500 mg PO BID PRN pain 7 days #14 03/22/23 tabs Allergies Allergy/AdvReac Type Severity Reaction Status Date / Time No Known Allergies Allergy Verified 06/02/21 19:29 [No Known Allergies*] Review of Systems Review of Systems: Fever, coughing, sore throat Yes all other systems are reviewed and are negative PMFSH Past Medical History Medical History Gastroschisis, congenital No known health problems Social History Social History Alcohol intake: never Smoked in Last 30 Days: No Use of substances other than those prescribed or required for medical reasons: No Advance Directives: No Advance Directives Information Provided: Yes Physical Exam ED Vital Signs: Vital Signs - 24 hr 03/22/23 07:01 03/22/23 07:07 03/22/23 07:07 Temperature 102.2 F H 103.2 F H 103.2 F H Pulse Rate 131 H 125 H 127 H Respiratory Rate 20 18 18 Blood Pressure 136/71 116/69 116/69 Pulse Oximetry 96 97 97 Oxygen Delivery Method Room Air Room Air Room Air BMI result Body Mass Index 23.7 Const General: cooperative, healthy appearing, comfortable, no acute distress, well developed, alert, awake and Physically active Orientation/consciousness: oriented to person, oriented to place, oriented to time and patient oriented x3 HENMT Head: Yes normal to inspection, Yes No palpable skull fracture present, Yes normocephalic, Yes atraumatic and No abrasion Ears: hearing grossly normal bilaterally, external ears normal, TM's normal bilaterally, TM normal on the right, TM normal on the left, EAC's normal, mastoids normal and no periauricular adenopathy Face and sinus: Yes normal facial exam, Yes sinuses nontender and Yes face symmetric Mouth: Normal oral and palatal mucosa present, lip normal and tongue normal Throat: Yes posterior oropharynx normal, Yes tonsils normal and Yes uvula midline Eyes General: appearance normal, both eyes and all related structures Neck Neck: Yes normal visual inspection, Yes full ROM, Yes no lymphadenopathy, Yes no meningeal signs, Yes trachea midline, Yes supple, No anterior neck swelling and No tender Chest Chest palpation & inspection: normal inspection of the chest and normal palpation of entire chest wall Resp Effort & Inspection: normal respiratory effort and able to speak in complete sentences Auscultation: clear to auscultation bilaterally Cardio Jugular venous distension: no JVD Heart sounds: S1 normal heart sound present and S2 normal heart sound present GI Inspection: Yes normal to inspection and No abdominal wall ecchymosis Palpation (GI): Soft to palpation, not firm, nontender, no guarding and not rigid General: No CVA tenderness and Yes no CVA tenderness Back/Spine/Pelvis Back: no CVA tenderness, No CVA tenderness and No back tenderness Skin General skin exam: no rashes or lesions noted and elasticity normal Neuro General: oriented to person, oriented to place, oriented to time, patient oriented x3, gait normal, tone normal, moves all extremities, Normal light touch and pain sensation, no meningeal signs, no focal motor deficits, CN's II-XI intact bilaterally and normal sensation to monofilament Extrem General: Yes normal to inspection and Yes full ROM Psych Appearance: grossly normal, well kempt and not disheveled Medications Administered Discontinued Medications Generic Name Dose Route Start Last Admin Trade Name Kimaniq PRN Reason Stop Dose Admin Acetaminophen 975 mg 03/22/23 07:20 03/22/23 07:50 Acetaminophen 325 Mg Tablet PO 03/22/23 07:21 975 mg ONCE ONE Administration Sodium Chloride 1,000 mls @ 999 mls/hr 03/22/23 07:18 03/22/23 10:44 Ns IV 07/21/23 08:18 Infused .Q1H1M STA Infusion Sodium Chloride 1,000 mls @ 999 mls/hr 03/22/23 07:30 03/22/23 10:57 Ns IV 03/22/23 08:30 Not Given .Q1H1M RAEANN Ketorolac Tromethamine 30 mg 03/22/23 07:20 03/22/23 07:50 Ketorolac Tromethamine 30 Mg/Ml Vial IVPUSH 03/22/23 07:21 30 mg ONCE ONE Administration Medical Decision Making Medical Decision Making [facility] Narrative: 22-year-old male presents to ED for sore throat, fever, cough, malaise, and body aches. Patient's girlfriend have similar symptoms. Patient febrile tachycardic. Most likely viral. Patient positive COVID. Chest x-ray negative pneumonia. Influenza strep test negative. Lactic acid negative. Patient not septic. Differential Diagnosis Differential Diagnoses: The differential diagnosis associated with the presentation includes (Pneumonia, COVID, flu, sore throat, peritonsillar abscess, pharyngitis, Phani's angina, retropharyngeal abscess,) Admission/Observation Consideration of admission/observation: Escalation of care including admission/observation considered Lab Data [facility] Lab Attestation statement: I reviewed the patient's lab results. 03/22/23 07:39 03/22/23 07:39 Labs: Lab Results 03/22/23 03/22/23 03/22/23 Range/Units 07:17 07:17 07:17 WBC (4.8-10.8) X10*3/uL RBC (4.60-5.80) X10*6/uL Hgb (14.0-18.0) g/dl Hct (42.0-52.0) % MCV (80.0-98.0) fL MCH (27.0-33.0) pg MCHC (31.0-36.0) g/dl RDW (11.0-16.0) % Plt Count (160-400) X10*3/uL MPV (9.4-12.4) fL Immature Gran % (Auto) (0.0-0.4) % Neut % (Auto) (45-73) % Lymph % (Auto) (20-40) % Snyder % (Auto) (2-11) % Eos % (Auto) (0-4) % Baso % (Auto) (0-2) % Lymph # (Auto) (1.2-4.9) X10*3/uL Snyder # (Auto) (0.1-1.2) X10*3/uL Eos # (Auto) (0.0-0.4) X10*3/uL Baso # (Auto) (0.0-0.2) X10*3/uL Abs Immat Gran (auto) (0.00-0.03) X10*3/uL Absolute Neuts (auto) (2.0-8.3) x10*3/uL Absolute Nucleated RBC (0.0-0.012) X10*3/uL Nucleated RBC % (auto) (0.0-0.2) /100WBC Sodium (135-145) mmol/L Potassium (3.3-5.1) mmol/L Chloride (96-108) mmol/L Carbon Dioxide (22-29) mmol/L Anion Gap (12-20) BUN (9-16) mg/dL Creatinine (0.5-1.4) mg/dL Estim Creat Clear Calc Estimated GFR Random Glucose (60-115) mg/dL Lactic Acid (0.5-2.0) mmol/L Calcium (8.4-10.2) mg/dL Total Bilirubin (0.0-1.0) mg/dL AST (5-37) U/L ALT (0-40) U/L Alkaline Phosphatase (39-117) U/L Total Protein (6.5-8.0) g/dL Albumin (3.5-5.0) g/dL COVID-19 (BASIM) Positive A (Negative) COVID-19 Clin Com See Note Influenza Type A (NOHEMI) Cancelled Influenza Type B (NOHEMI) Cancelled Influenza A & B Note Cancelled S. pyogenes GrpA NOHEMI Negative (Negative) 03/22/23 03/22/23 03/22/23 Range/Units 07:39 07:39 07:39 WBC 7.2 (4.8-10.8) X10*3/uL RBC 5.73 (4.60-5.80) X10*6/uL Hgb 16.8 (14.0-18.0) g/dl Hct 49.7 (42.0-52.0) % MCV 86.7 (80.0-98.0) fL MCH 29.3 (27.0-33.0) pg MCHC 33.8 (31.0-36.0) g/dl RDW 12.0 (11.0-16.0) % Plt Count 283 (160-400) X10*3/uL MPV 9.9 (9.4-12.4) fL Immature Gran % (Auto) 0.6 H (0.0-0.4) % Neut % (Auto) 81.1 H (45-73) % Lymph % (Auto) 5.7 L (20-40) % Snyder % (Auto) 11.1 H (2-11) % Eos % (Auto) 1.1 (0-4) % Baso % (Auto) 0.4 (0-2) % Lymph # (Auto) 0.4 L (1.2-4.9) X10*3/uL Snyder # (Auto) 0.8 (0.1-1.2) X10*3/uL Eos # (Auto) 0.1 (0.0-0.4) X10*3/uL Baso # (Auto) 0.0 (0.0-0.2) X10*3/uL Abs Immat Gran (auto) 0.04 H (0.00-0.03) X10*3/uL Absolute Neuts (auto) 5.8 (2.0-8.3) x10*3/uL Absolute Nucleated RBC 0.000 (0.0-0.012) X10*3/uL Nucleated RBC % (auto) 0.0 (0.0-0.2) /100WBC Sodium 136 (135-145) mmol/L Potassium 3.6 (3.3-5.1) mmol/L Chloride 99 (96-108) mmol/L Carbon Dioxide 25 (22-29) mmol/L Anion Gap 16 (12-20) BUN 11 (9-16) mg/dL Creatinine 1.07 (0.5-1.4) mg/dL Estim Creat Clear Calc 94.9 Estimated GFR > 60 Random Glucose 105 (60-115) mg/dL Lactic Acid 1.0 (0.5-2.0) mmol/L Calcium 10.7 H D (8.4-10.2) mg/dL Total Bilirubin 0.4 (0.0-1.0) mg/dL AST 27 (5-37) U/L ALT 36 (0-40) U/L Alkaline Phosphatase 108 (39-117) U/L Total Protein 9.3 H (6.5-8.0) g/dL Albumin 5.1 H (3.5-5.0) g/dL COVID-19 (BASIM) (Negative) COVID-19 Clin Com Influenza Type A (NOHEMI) Influenza Type B (NOHEMI) Influenza A & B Note S. pyogenes GrpA NOHEMI (Negative) 03/22/23 Range/Units 07:46 WBC (4.8-10.8) X10*3/uL RBC (4.60-5.80) X10*6/uL Hgb (14.0-18.0) g/dl Hct (42.0-52.0) % MCV (80.0-98.0) fL MCH (27.0-33.0) pg MCHC (31.0-36.0) g/dl RDW (11.0-16.0) % Plt Count (160-400) X10*3/uL MPV (9.4-12.4) fL Immature Gran % (Auto) (0.0-0.4) % Neut % (Auto) (45-73) % Lymph % (Auto) (20-40) % Snyder % (Auto) (2-11) % Eos % (Auto) (0-4) % Baso % (Auto) (0-2) % Lymph # (Auto) (1.2-4.9) X10*3/uL Snyder # (Auto) (0.1-1.2) X10*3/uL Eos # (Auto) (0.0-0.4) X10*3/uL Baso # (Auto) (0.0-0.2) X10*3/uL Abs Immat Gran (auto) (0.00-0.03) X10*3/uL Absolute Neuts (auto) (2.0-8.3) x10*3/uL Absolute Nucleated RBC (0.0-0.012) X10*3/uL Nucleated RBC % (auto) (0.0-0.2) /100WBC Sodium (135-145) mmol/L Potassium (3.3-5.1) mmol/L Chloride (96-108) mmol/L Carbon Dioxide (22-29) mmol/L Anion Gap (12-20) BUN (9-16) mg/dL Creatinine (0.5-1.4) mg/dL Estim Creat Clear Calc Estimated GFR Random Glucose (60-115) mg/dL Lactic Acid (0.5-2.0) mmol/L Calcium (8.4-10.2) mg/dL Total Bilirubin (0.0-1.0) mg/dL AST (5-37) U/L ALT (0-40) U/L Alkaline Phosphatase (39-117) U/L Total Protein (6.5-8.0) g/dL Albumin (3.5-5.0) g/dL COVID-19 (BASIM) (Negative) COVID-19 Clin Com Influenza Type A (NOHEMI) Negative Influenza Type B (NOHEMI) Negative Influenza A & B Note See Note S. pyogenes GrpA NOHEMI (Negative) Independent Interpretation I performed an independent interpretation of an: Plain X-Ray Radiology Impression Discussion of test interpretation with radiology: I have reviewed the radiolog ist's reading. Independent Historian Clinical information obtained from an independent historian. History obtained from or confirmed by: Other (Patient) External Record Review External record reviewed: Other (ED visit) Prescription Management I considered prescription management with: Pain Medication Discharge Plan Discharge Clinical Impression: COVID-19 Patient Disposition: Home, Self-Care Instructions: COVID-19 (Coronavirus Disease 2019) (ED) Additional Instructions: You are positive for COVID. Return to the ED immediately for any chest pain, shortness of breath, coughing up blood, weakness, dizziness, calf pain, or any other concerning symptoms. Please follow up with primary care provider. Prescriptions: New naproxen 500 mg tablet 500 mg PO BID PRN (Reason: pain) 7 Days Qty: 14 0RF No Action polyethylene glycol 3350 [Miralax] 17 gram/dose powder 17 g PO DAILY Qty: 119 0RF Rx Instructions: drink plenty of water with this medication and throughout the day doxycycline hyclate 100 mg capsule 100 mg PO BID 10 Days Qty: 20 0RF cephalexin 500 mg tablet 500 mg PO Q6H 10 Days Qty: 40 0RF Stand Alone Forms: Work/School Release Interventions: ED Discharge Assessment Last Done: 03/22/23 10:56 Discharge Date/Time: 03/22/23 10:57 Print Language: Tamazight
[2023-03-22 10:56] VITALS: TEMP 37.1
--- NOTE | 2023-03-22 10:57 | PC.NURSE ---
Patient reports feeling much better, temp 98.8, HR 100. Discharge instruction reviewed with patient and significant other who verbalized understanding
== END 2023-03-22 10:57 | disposition home or self-care (01) ==
PROVIDERS: Physician Assistant; Emergency Provider Emergency Medicine
DX: U07.1 COVID-19 (principal); R50.9 Fever, unspecified
CPT/HCPCS: 36415; 71045; 80053; 83605; 85025; 87040; 87502; 87635; 87651; 96361; 96374; 99284; J1885

== ENCOUNTER 2023-06-27 16:11 | Emergency (ER) | payer MEDICAID, SELFPAY ==
[2023-06-27 16:40] VITALS: BP 116/73; PULSE 110; RESP 18; TEMP 36.9; O2SAT 98; BMI 23.3
[2023-06-27 17:23] LABS: IDNOW Serial# 6674DD1D; Strep A Nucleic Acid Negative (Negative)
[2023-06-27 17:24] LABS: COVID-19 Test Negative (Negative); IDNOW Serial# BCCEAD1C
--- NOTE | 2023-06-27 17:31 | ED_ITS ---
HPI - General Adult General Chief complaint: Upper Respiratory Symptoms Stated complaint: nasal congestion,cough,vomiting Time Seen by Provider: 06/27/23 17:31 Source: patient, RN notes reviewed and old records reviewed Mode of arrival: ambulatory Limitations: no limitations History of Present Illness HPI narrative: 22-year-old male presents for evaluation of flu-like symptoms. He complains of a headache, sore throat congestion, facial pain. Patient reports he vomited once this morning. All the symptoms started this morning. He has not tried any [id number] medications Denies any shortness of breath, abdominal pain Denies any sick contacts or recent travel Related Data Previous Rx's Medication Instructions Recorded polyethylene glycol 3350 17 17 g PO DAILY #119 grams 06/02/22 gram/dose oral powder (Miralax) cephalexin 500 mg tablet 500 mg PO Q6H 10 days #40 tabs 12/29/22 doxycycline hyclate 100 mg capsule 100 mg PO BID 10 days #20 caps 12/29/22 naproxen 500 mg tablet 500 mg PO BID PRN pain 7 days #14 03/22/23 tabs ondansetron 4 mg disintegrating 4 mg PO Q8H PRN nausea and 06/27/23 tablet vomiting #20 tabs Allergies Allergy/AdvReac Type Severity Reaction Status Date / Time No Known Allergies Allergy Verified 06/27/23 16:39 [No Known Allergies*] Review of Systems Constitutional: Constitutional: Denies chills, Denies fever(s) and Reports headache(s) ENT: Denies vertigo, Denies dizziness, Reports headache(s), Reports sinus pressure and Reports sore throat Cardiovascular: Cardiovascular: Denies chest pain and Denies dyspnea Respiratory: Respiratory: Denies cough and Denies dyspnea Gastrointestinal: Gastrointestinal: Denies abdominal pain, Denies diarrhea, Denies loose stools, Reports nausea and Reports vomiting Neurologic: Denies vertigo, Denies dizziness and Reports headache(s) [facility] Past Medical History Medical History Gastroschisis, congenital No known health problems Social History Social History Alcohol intake: never Physical Exam ED Vital Signs: Vital Signs - 24 hr 06/27/23 16:40 Temperature 98.4 F Pulse Rate 110 H Respiratory Rate 18 Blood Pressure 116/73 Pulse Oximetry 98 Oxygen Delivery Method Room Air BMI result Body Mass Index 23.3 Const General: healthy appearing, comfortable, no acute distress, alert and awake Nutritional Appearance: well nourished Orientation/consciousness: patient oriented x3 HENMT Head: Yes normocephalic and Yes atraumatic Throat: Yes posterior oropharynx normal Eyes Eyelids: Yes eyelids normal Conjunctivae: conjunctivae normal Sclerae: sclerae normal Corneas: corneas normal Pupils: Equal, round and reactive pupils present EOM: EOMs intact bilaterally Neck Neck: Yes full ROM Resp Effort & Inspection: normal respiratory effort, able to speak in complete sentences, no audible wheezes and not labored Auscultation: clear to auscultation bilaterally Cardio Rate: regular rate Rhythm: regular rhythm GI Inspection: No distended Palpation (GI): Soft to palpation, not firm, nontender, no guarding and not rig id Skin General skin exam: no rashes or lesions noted and elasticity normal Neuro General: patient oriented x3 Cranial nerves: Yes Equal, round and reactive pupils present and Yes Bilaterally intact EOM present Cognition (Neuro): normal cognition Extrem Other: Moving all extremities well without any obvious deformities Medical Decision Making Medical Decision Making MDM Narrative: 22-year-old healthy male presents for evaluation of flu-like symptoms. He tested negative for influenza, COVID-19 and strep throat. He was very slightly tachycardic to 110 of this is likely related to a viral illness which explains office symptoms. Lungs are clear to auscultation, abdominal exam is benign reported airway is widely patent apparently not see any indication for further emergent workup or testing. He will be discharged with symptomatic care. Differential Diagnosis Differential Diagnoses: The differential diagnosis associated with the presentation includes Viral syndrome Upper respiratory infection COVID-19 Influenza Strep pharyngitis Lab Data Labs: Lab Results 06/27/23 Range/Units 16:59 COVID-19 (BASIM) Negative (Negative) COVID-19 Clin Com See Note S. pyogenes GrpA NOHEMI Negative (Negative) Discharge Plan Discharge Clinical Impression: Upper respiratory infection Patient Disposition: Home, Self-Care Instructions: Upper Respiratory Infection (ED) Additional Instructions: Your workup in the emergency department today was reassuring. You tested negative for COVID, influenza and strep throat. Take Zofran as needed for nausea and vomiting. Drink lots of fluids. Use Motrin/Tylenol for pain Follow-up with your primary doctor Prescriptions: New ondansetron 4 mg tablet,disintegrating 4 mg PO Q8H PRN (Reason: nausea and vomiting) Qty: 20 0RF No Action polyethylene glycol 3350 [Miralax] 17 gram/dose powder 17 g PO DAILY Qty: 119 0RF Rx Instructions: drink plenty of water with this medication and throughout the day naproxen 500 mg tablet 500 mg PO BID PRN (Reason: pain) 7 Days Qty: 14 0RF doxycycline hyclate 100 mg capsule 100 mg PO BID 10 Days Qty: 20 0RF cephalexin 500 mg tablet 500 mg PO Q6H 10 Days Qty: 40 0RF Stand Alone Forms: Work/School Release
== END 2023-06-27 17:36 | disposition home or self-care (01) ==
PROVIDERS: Emergency Provider Emergency Medicine
DX: J06.9 Acute upper respiratory infection, unspecified (principal); R05.9 Cough, unspecified; R11.2 Nausea with vomiting, unspecified; R51.9 Headache, unspecified; Z20.822 Contact with and (suspected) exposure to COVID-19; Z20.828 Contact with and (suspected) exposure to other viral communicable diseases; Z79.899 Other long term (current) drug therapy
CPT/HCPCS: 87635; 87651; 99282; 99283

== ENCOUNTER 2023-08-21 01:25 | Emergency (ER) | payer MEDICAID, SELFPAY ==
[2023-08-21 01:40] VITALS: BP 128/63; PULSE 88; RESP 18; TEMP 36.9; O2SAT 98; BMI 24.6
[2023-08-21 02:31] LABS: MANUAL DIFF FLAG NO
[2023-08-21 02:32] LABS: Basophils Percent Auto 0.5 % (0-2); Eosinophils Absolute Auto 0.2 X10*3/uL (0.0-0.4); Eosinophils Percent Auto 3.7 % (0-4); Hematocrit 44.8 % (42.0-52.0); Hemoglobin 15.2 g/dl (14.0-18.0); Imm Gran Abs Auto 0.02 X10*3/uL (0.00-0.03); Imm Gran Pct Auto 0.3 % (0.0-0.4); Lymphocytes Absolute Auto 0.9 X10*3/uL (1.2-4.9); Mean Corpuscular HGB Conc 33.9 g/dl (31.0-36.0); Mean Corpuscular Hemoglobin 29.4 pg (27.0-33.0); Mean Corpuscular Volume 86.7 fL (80.0-98.0); Mean Platelet Volume 10.1 fL (9.4-12.4); Monocytes Absolute Auto 0.8 X10*3/uL (0.1-1.2); Monocytes Percent Auto 12.7 % (2-11); Neutrophils Absolute Auto 4.1 x10*3/uL (2.0-8.3); Neutrophils Percent Auto 67.8 % (45-73); Platelet Count 294 X10*3/uL (160-400); Red Blood Count 5.17 X10*6/uL (4.60-5.80); Red Cell Distribution Width 12.3 % (11.0-16.0)
[2023-08-21 02:50] LABS: Alanine Aminotransferase 31 U/L (0-40); Albumin Level 4.1 g/dL (3.5-5.0); Alkaline Phosphatase 84 U/L (39-117); Anion Gap 13 (12-20); Aspartate Amino Transferase 22 U/L (5-37); Bilirubin Total 0.4 mg/dL (0.0-1.0); Blood Urea Nitrogen 15 mg/dL (9-16); Calcium 9.2 mg/dL (8.4-10.2); Carbon Dioxide 26 mmol/L (22-29); Chloride 106 mmol/L (96-108); Creatinine Clr Calc Pharmacy 100.6; Estimated Glomerular Filt Rate > 60; Glucose Random 96 mg/dL (60-115); Potassium 3.7 mmol/L (3.3-5.1); Sodium 141 mmol/L (135-145); Total Protein 7.1 g/dL (6.5-8.0)
--- NOTE | 2023-08-21 05:50 | ED_ITS ---
HPI - Nausea/Vomiting/Diarrhea General Chief complaint: Nausea/Vomiting/Diarrhea Stated complaint: gen med Time Seen by Provider: 08/21/23 05:49 Source: patient Mode of arrival: ambulatory Limitations: no limitations History of Present Illness HPI Narrative: 22 yo male with no PMH ate palestinian food the other day - pork fried rice and then developed diarrhea. He has no fevers, bloody stools, has minimal cramping with diarrhea. He notes he only has diarrhea after he eats. No recent antibiotic use MD elicited complaint: diarrhea Onset (ago): day(s) (4) Description of diarrhea: watery and other (was yellow at one point so he was nervous) Associated nausea: No Associated abdominal pain: Yes Location of pain: other (very mild lower cramping) Pain consistency: intermittent Severity: mild Quality: cramping Exacerbating factors: eating Relieving factors: none Context: possible food poisoning Associated symptoms: denies other symptoms Related Data Previous Rx's Medication Instructions Recorded polyethylene glycol 3350 17 17 g PO DAILY #119 grams 06/02/22 gram/dose oral powder (Miralax) cephalexin 500 mg tablet 500 mg PO Q6H 10 days #40 tabs 12/29/22 doxycycline hyclate 100 mg capsule 100 mg PO BID 10 days #20 caps 12/29/22 naproxen 500 mg tablet 500 mg PO BID PRN pain 7 days #14 03/22/23 tabs ondansetron 4 mg disintegrating 4 mg PO Q8H PRN nausea and 06/27/23 tablet vomiting #20 tabs Allergies Allergy/AdvReac Type Severity Reaction Status Date / Time No Known Allergies Allergy Verified 08/21/23 01:42 [No Known Allergies*] Review of Systems 2 Review of Systems: Constitutional : No Weight loss, No Fever, No Chills ENT/Mouth : No sore throat, No Rhinorrhea Eyes: No Swelling, No Redness Cardiovascular : No Chest Pain, No SOB, NoEdema Respiratory : No Cough, No Sputum, No Wheezing Gastrointestinal : no Nausea, no Vomiting, positive Diarrhea, positive abdominal Pain, No Hematochezia, No Melena Genitourinary : No Dysuria, No Urinary Frequency, No Hematuria, No Urgency Musculoskeletal : No joint pain, No Myalgias, No Joint Swelling Skin : No Skin Lesions, No rash Neuro : No Weakness, No Numbness, No Dizziness, No Headache Psych : No Anxiety/Panic, No Depression All other systems reviewed and are negative. Gastrointestinal: Gastrointestinal: Denies nausea PMFSH Past Medical History Attestation statement: The following information was validated with the patient. Medical History Gastroschisis, congenital No known health problems Social History Social History Alcohol intake: never Patient Tobacco Use Status: Never used Tobacco Physical Exam 2 Vital Signs: Vital Signs: Last Vital Signs Temp 98.5 F 08/21/23 01:40 Pulse 88 08/21/23 01:40 Resp 18 08/21/23 01:40 BP 128/63 08/21/23 01:40 Pulse Ox 98 08/21/23 01:40 O2 Del Method Room Air 08/21/23 01:40 BMI result Body Mass Index 24.6 Appearance: Alert. Oriented X3. No acute distress. Eyes: Pupils equal, round and reactive to light. ENT: Pharynx normal. MMM Neck: Normal inspection. Neck supple. CVS: Normal heart rate and rhythm. Pulses normal. Respiratory: No respiratory distress. Breath sounds normal. Abdomen: Soft and nontender. Skin: Skin warm and dry. Normal skin color. Normal skin turgor. Extremities: No lower extremity edema. No calf ttp Neuro: Oriented X 3. No motor deficit. No sensory deficit. Medical Decision Making Medical Decision Making [facility] Narrative: 22 yo male no PMH and immunocompetent here with c/o diarrhea nonbloody after eating palestinian food - he has no fevers, he is not toxic, tolerating PO, only cramps and stool when he eats, suspect food toxicity that he will clear on his own. At this time discussed probiotics, expectant course, BRAT diet. He is stable for outpatient management Differential Diagnosis Differential Diagnoses: The differential diagnosis associated with the presentation includes colitis, food toxicity Admission/Observation Consideration of admission/observation: Escalation of care including admission/observation considered not toxic, well hydrated can be managed as outpatient Lab Data [facility] Lab Attestation statement: I reviewed the patient's lab results. 08/21/23 02:23 08/21/23 02:23 Labs: Lab Results 08/21/23 Range/Units 02:23 WBC 6.0 (4.8-10.8) X10*3/uL RBC 5.17 (4.60-5.80) X10*6/uL Hgb 15.2 (14.0-18.0) g/dl Hct 44.8 (42.0-52.0) % MCV 86.7 (80.0-98.0) fL MCH 29.4 (27.0-33.0) pg MCHC 33.9 (31.0-36.0) g/dl RDW 12.3 (11.0-16.0) % Plt Count 294 (160-400) X10*3/uL MPV 10.1 (9.4-12.4) fL Immature Gran % (Auto) 0.3 (0.0-0.4) % Neut % (Auto) 67.8 (45-73) % Lymph % (Auto) 15.0 L (20-40) % [place] % (Auto) 12.7 H (2-11) % Eos % (Auto) 3.7 (0-4) % Baso % (Auto) 0.5 (0-2) % Lymph # (Auto) 0.9 L (1.2-4.9) X10*3/uL [place] # (Auto) 0.8 (0.1-1.2) X10*3/uL Eos # (Auto) 0.2 (0.0-0.4) X10*3/uL Baso # (Auto) 0.0 (0.0-0.2) X10*3/uL Abs Immat Gran (auto) 0.02 (0.00-0.03) X10*3/uL Absolute Neuts (auto) 4.1 (2.0-8.3) x10*3/uL Absolute Nucleated RBC 0.000 (0.0-0.012) X10*3/uL Nucleated RBC % (auto) 0.0 (0.0-0.2) /100WBC Sodium 141 (135-145) mmol/L Potassium 3.7 (3.3-5.1) mmol/L Chloride 106 (96-108) mmol/L Carbon Dioxide 26 (22-29) mmol/L Anion Gap 13 (12-20) BUN 15 (9-16) mg/dL Creatinine 1.01 (0.5-1.4) mg/dL Estim Creat Clear Calc 100.6 Estimated GFR > 60 Random Glucose 96 (60-115) mg/dL Calcium 9.2 D (8.4-10.2) mg/dL Total Bilirubin 0.4 (0.0-1.0) mg/dL AST 22 (5-37) U/L ALT 31 (0-40) U/L Alkaline Phosphatase 84 (39-117) U/L Total Protein 7.1 (6.5-8.0) g/dL Albumin 4.1 (3.5-5.0) g/dL External Record Review External record reviewed: Office record Discharge Plan Discharge Clinical Impression: Diarrhea Qualifiers: Diarrhea type: presumed infectious Qualified Code(s): R19.7 - Diarrhea, unspecified Patient Disposition: Home, Self-Care Instructions: Acute Diarrhea (ED), Nutrition Tips for Relief of Diarrhea (ED) Additional Instructions: Bananas Rice Applesauce [place] - very bland diet for the next 5 days return for fevers, severe abdominal pain, bloody stools, inability to eat or drink take an over the counter probiotic - you can have yogurt right now but limit other dairy Prescriptions: No Action polyethylene glycol 3350 [Miralax] 17 gram/dose powder 17 g PO DAILY Qty: 119 0RF Rx Instructions: drink plenty of water with this medication and throughout the day naproxen 500 mg tablet 500 mg PO BID PRN (Reason: pain) 7 Days Qty: 14 0RF doxycycline hyclate 100 mg capsule 100 mg PO BID 10 Days Qty: 20 0RF cephalexin 500 mg tablet 500 mg PO Q6H 10 Days Qty: 40 0RF ondansetron 4 mg tablet,disintegrating 4 mg PO Q8H PRN (Reason: nausea and vomiting) Qty: 20 0RF Stand Alone Forms: Work/School Release Discharge Date/Time: 08/21/23 05:55
[2023-08-21 05:53] VITALS: BP 124/64; PULSE 74; RESP 18; O2SAT 99
== END 2023-08-21 05:55 | disposition home or self-care (01) ==
PROVIDERS: Emergency Provider Emergency Medicine
DX: R19.7 Diarrhea, unspecified (principal); R11.2 Nausea with vomiting, unspecified; Z79.899 Other long term (current) drug therapy
CPT/HCPCS: 36415; 80053; 85025; 99282; 99283

== ENCOUNTER 2023-10-16 10:11 | Emergency (ER) | payer MEDICAID, SELFPAY ==
--- NOTE | ~2023-10-16 | XR_ITS ---
EXAMINATION: XR FOOT, LEFT CLINICAL INFORMATION: Left foot hit by heavy object, injury and pain COMPARISON: None available. TECHNIQUE: AP, lateral, and oblique views of the left foot. FINDINGS: BONES: Bony structures are intact. There is no focal bone destruction or periosteal reaction seen. JOINTS: Alignment of joints is normal. SOFT TISSUE: Soft tissue is normal. No radiopaque foreign body or abnormal air collection is seen. XR/XR foot LT 2V IMPRESSION: 1. Normal x-rays of left foot. No fracture or dislocation or signs of osteomyelitis are found.
[2023-10-16 10:21] VITALS: BP 123/67; PULSE 101; RESP 16; TEMP 36.6; O2SAT 99; BMI 22.6
--- NOTE | 2023-10-16 13:35 | ED.GENADULT ---
HPI - General Adult General Chief complaint: Extremity Injury, Lower Stated complaint: L Foot Pain Work Injury 10/16/23 Time Seen by Provider: 10/16/23 13:34 Source: patient Mode of arrival: ambulatory Limitations: no limitations History of Present Illness HPI narrative: Patient is a 23 year old assigned male at with no reported medical history presenting to the emergency department today with left foot pain. Patient states that he was at work when something heavy fell on his left foot. Patient denies any loss of consciousness or head strike. Patient denies any dizziness, lightheadedness, abdominal pain, nausea, vomiting, fever, chills, blurry vision, double vision, loss of vision, chest pain, difficulty breathing, shortness of breath, back pain, night sweats, pain with urination, increased urinary frequency, increased urinary urgency, blood in his urine or stool, syncope or a near syncopal episode, bowel incontinence, bladder incontinence, bowel retention, bladder retention, or any other complaints at this time. Onset (ago): hour(s) Location: left and lower extremity Radiation: non-radiation Severity: mild Severity scale (1-10): 3 Quality: aching and dull Pain Consistency: constant Relieving factors: none Exacerbating factors: none Associated symptoms: denies other symptoms Treatments prior to arrival: none Related Data Previous Rx's Medication Instructions Recorded polyethylene glycol 3350 17 17 g PO DAILY #119 grams 06/02/22 gram/dose oral powder (Miralax) cephalexin 500 mg tablet 500 mg PO Q6H 10 days #40 tabs 12/29/22 doxycycline hyclate 100 mg capsule 100 mg PO BID 10 days #20 caps 12/29/22 naproxen 500 mg tablet 500 mg PO BID PRN pain 7 days #14 03/22/23 tabs ondansetron 4 mg disintegrating 4 mg PO Q8H PRN nausea and 06/27/23 tablet vomiting #20 tabs Allergies Allergy/AdvReac Type Severity Reaction Status Date / Time No Known Allergies Allergy Verified 10/16/23 10:21 [No Known Allergies*] Review of Systems Constitutional: Constitutional: Reports no additional constitutional complaints, Denies chills, Denies fever(s) and Denies night sweats Eyes: Eyes: Reports no additional eye complaints, Denies blurry vision, Denies change in vision, Denies diplopia, Denies eye discharge, Denies loss of vision and Denies eye pain ENT: Denies dizziness Cardiovascular: Cardiovascular: Reports no additional cardiovascular complaints, Denies chest pain, Denies lightheadedness, Denies Loss of Consciousness and Denies dyspnea Respiratory: Respiratory: Reports no additional respiratory complaints and Denies dyspnea Gastrointestinal: Gastrointestinal: Reports no additional gastrointestinal complaints, Denies abdominal pain, Denies melena, Denies hematochezia, Denies change in bowel habits and Denies change in stool character Genitourinary: Genitourinary: Reports no additional male genitourinary complaints, Denies hematuria, Denies oliguria, Denies difficulty urinating, Denies dysuria, Denies urinary frequency, Denies urinary hesitancy, Denies urinary incontinence and Denies urinary urgency Musculoskeletal: Musculoskeletal: Reports no additional musculoskeletal complaints, Denies numbness and Denies tingling Comments: left foot pain Neurologic: Denies dizziness, Denies loss of vision, Denies numbness and Denies tingling Psychiatric: Psychiatric: Reports no additional psychiatric complaints Endocrine: Endocrine: Reports no additional endocrine complaints Hematologic/Lymphatic: Hematologic/Lymphatic: Reports no additional hematologic/lymphatic complaints Allergic/Immunologic: Allergic/Immunologic: Reports no additional allergic/immunologic complaints PMFSH Past Medical History Attestation statement: The following information was validated with the patient. Source: old records reviewed and nursing notes reviewed Medical History Gastroschisis, congenital No known health problems Social History Social History Alcohol intake: never Patient Tobacco Use Status: Never used Tobacco Advance Directives: No Advance Directives Information Provided: No Physical Exam ED Vital Signs: Vital Signs - 24 hr 10/16/23 10:21 Temperature 98 F Pulse Rate 101 H Respiratory Rate 16 Blood Pressure 123/67 Pulse Oximetry 99 Oxygen Delivery Method Room Air BMI result Body Mass Index 22.6 Const General: cooperative, no acute distress, alert and awake Nutritional Appearance: well nourished Orientation/consciousness: patient oriented x3 Limitations: no limitations HENMT Head: Yes normal to inspection and Yes atraumatic Ears: hearing grossly normal bilaterally and external ears normal General nose exam: Normal external nose present, no nasal discharge noted and no epistaxis Face and sinus: Yes normal facial exam, No abrasion and No laceration Mouth: Normal oral and palatal mucosa present, no drooling and no muffled voice Eyes General: appearance normal, both eyes and all related structures Periorbital: periorbital findings normal Eyelids: Yes eyelids normal Conjunctivae: conjunctivae normal Pupils: Equal, round and reactive pupils present EOM: EOMs intact bilaterally Neck Neck: Yes normal visual inspection, Yes full ROM and Yes no lymphadenopathy Chest Chest palpation & inspection: normal inspection of the chest Resp Effort & Inspection: normal respiratory effort and able to speak in complete sentences GI Inspection: Yes normal to inspection Neuro General: patient oriented x3 and moves all extremities Cranial nerves: Yes Equal, round and reactive pupils present Cognition (Neuro): normal cognition Motor exam (neuro): 5/5 motor strength present throughout Sensory Exam: Normal double simultaneous stimulation for sensation Coordination: [id number] test normal Extrem General: Yes normal to inspection, Yes full ROM and Yes capillary refill normal Psych Appearance: grossly normal Mental Status: mental status grossly normal Affect: normal affect Attitude: cooperative Thought process: Normal thought process present Thought content: Normal thought content present Insight: Good insight present (Psych) Medical Decision Making Medical Decision Making MDM Narrative: Patient is a 23 year old assigned male at with no reported medical history presenting to the emergency department today with left foot pain. Patient's physical exam was unremarkable. Patient's left foot x-ray showed no acute process. I explained my physical exam findings as well as all test results to the patient. I answered all questions asked by the patient. I stressed the importance of the patient taking his medication as prescribed. I stressed the importance of the patient following up with his primary care provider. I stressed the importance of the patient returning to the emergency department immediately if his symptoms were to worsen or if he were to develop any dizziness, shortness of breath, difficulty breathing, chest pain, blurry vision, loss of vision, nausea, vomiting, abdominal pain, fever, chills, back pain, or any other complaints. Patient verbalized agreement and understanding with this treatment plan and discharge. Differential Diagnosis Differential Diagnoses: The differential diagnosis associated with the presentation includes Foot pain Foot sprain Foot strain Contusion Foot fracture Admission/Observation Consideration of admission/observation: Escalation of care including admission/observation considered Patient would have been admitted to the hospital had his work up had any findings where hospital admission was appropriate and his clinical presentation warranted hospital admission. Independent Interpretation I performed an independent interpretation of an: Plain X-Ray Interpretation: My interpretation is in agreement with the radiologist's impression of this imaging study. EXAMINATION: XR FOOT, LEFT CLINICAL INFORMATION: Left foot hit by heavy object, injury and pain COMPARISON: None available. TECHNIQUE: AP, lateral, and oblique views of the left foot. FINDINGS: BONES: Bony structures are intact. There is no focal bone destruction or periosteal reaction seen. JOINTS: Alignment of joints is normal. SOFT TISSUE: Soft tissue is normal. No radiopaque foreign body or abnormal air collection is seen. XR/XR foot LT 2V IMPRESSION: 1. Normal x-rays of left foot. No fracture or dislocation or signs of osteomyelitis are found. Dictated By: Familia Diamond Signed By: Electronically signed by Familia Diamond 10/16/23 1127 Radiology Impression Discussion of test interpretation with radiology: I have reviewed the radiologist's reading. Discharge Plan Discharge Clinical Impression: Acute foot pain Patient Disposition: Home, Self-Care Instructions: Contusion in Adults (ED) Additional Instructions: Follow up with your primary care provider and with [facility]. Return to the emergency department immediately if your symptoms worsen or if you develop any dizziness, shortness of breath, difficulty breathing, chest pain, blurry vision, loss of vision, nausea, vomiting, abdominal pain, fever, chills, back pain, or any other complaints. Prescriptions: No Action polyethylene glycol 3350 [Miralax] 17 gram/dose powder 17 g PO DAILY Qty: 119 0RF Rx Instructions: drink plenty of water with this medication and throughout the day naproxen 500 mg tablet 500 mg PO BID PRN (Reason: pain) 7 Days Qty: 14 0RF doxycycline hyclate 100 mg capsule 100 mg PO BID 10 Days Qty: 20 0RF cephalexin 500 mg tablet 500 mg PO Q6H 10 Days Qty: 40 0RF ondansetron 4 mg tablet,disintegrating 4 mg PO Q8H PRN (Reason: nausea and vomiting) Qty: 20 0RF Referrals: [facility] [Provider Group] (Given this was a work place injury, call to establish and follow up with [facility].) [facility] [Primary Care Provider] - Stand Alone Forms: Work/School Release Interventions: ED Discharge Assessment Last Done: 10/16/23 14:18 Discharge Date/Time: 10/16/23 14:20 Print Language: Romansh
== END 2023-10-16 14:20 | disposition home or self-care (01) ==
PROVIDERS: Emergency Provider Emergency Medicine Emergency Medical Services
DX: M79.672 Pain in left foot (principal)
CPT/HCPCS: 73620; 99283

== ENCOUNTER 2024-05-24 19:17 | Emergency (ER) | payer OTHER, SELFPAY ==
--- NOTE | ~2024-05-24 | XR_ITS ---
EXAMINATION: XR CHEST CLINICAL INFORMATION: Palpitations and chest pain COMPARISON: None available. TECHNIQUE: Frontal view of the chest was obtained. FINDINGS: No significant abnormality is noted involving the heart, lungs, mediastinum, bony thorax or soft tissues. XR/XR chest 1V IMPRESSION: Unremarkable examination. Electronically signed by: Hakeem Parra MD 05/24/2024 08:34 PM EDT RP
[2024-05-24 19:20] VITALS: BP 134/72; PULSE 104; RESP 18; TEMP 36.6; O2SAT 100; BMI 24.3
--- NOTE | 2024-05-24 19:23 | ECG_ITS ---
Test Reason : chest pain, tachy Blood Pressure : / mmHG Vent. Rate : 075 BPM Atrial Rate : 075 BPM P-R Int : 132 ms QRS Dur : 092 ms QT Int : 376 ms P-R-T Axes : 063 069 046 degrees QTc Int : 419 ms Normal sinus rhythm with sinus arrhythmia Normal ECG When compared with ECG of 13-NOV-2017 06:04, Vent. rate has decreased BY 53 BPM Referred By: Yemi López Electronically Signed By:AMY DE LEON
--- NOTE | 2024-05-24 19:25 | ED_ITS ---
HPI - General Adult General Chief complaint: Arrhythmia/Palpitations Stated complaint: sob, tachycardia Time Seen by Provider: 05/24/24 20:53 History of Present Illness ED Provider: Cathleen TREVINO narrative: An ordinarily healthy 23-year-old. He is on no medications. He says that for the last 4 days he has had chest discomfort, palpitations, and a sense of shortness of breath. No fever, sweats, chills. No sore throat. No abdominal pain, no nausea, no vomiting. He says he recently moved to this area from [place], [place]. He says he worked for [employer] in that area and he was relocated to this area he has not yet have a new doctor. He is working on getting local insurance. He is on no medications denies any significant past medical history. No pain or swelling in his legs. No edema. Related Data Previous Rx's ?Medication ?Instructions ?Recorded polyethylene glycol 3350 17 17 g PO DAILY #119 grams 06/02/22 gram/dose oral powder (Miralax) cephalexin 500 mg tablet 500 mg PO Q6H 10 days #40 tabs 12/29/22 doxycycline hyclate 100 mg capsule 100 mg PO BID 10 days #20 caps 12/29/22 naproxen 500 mg tablet 500 mg PO BID PRN pain 7 days #14 03/22/23 tabs ondansetron 4 mg disintegrating 4 mg PO Q8H PRN nausea and 06/27/23 tablet vomiting #20 tabs Allergies Allergy/AdvReac Type Severity Reaction Status Date / Time No Known Allergies Allergy Verified 05/24/24 19:24 [No Known Allergies*] Review of Systems 2 Review of Systems: Yes all other systems are reviewed and are negative PMFSH Past Medical History Medical History Gastroschisis, congenital No known health problems Social History Social History Alcohol intake: never Patient Tobacco Use Status: Never used Tobacco Smoked in Last 30 Days: No Use of substances other than those prescribed or required for medical reasons: No Advance Directives: No Advance Directives Information Provided: No Physical Exam ED Vital Signs: Vital Signs - 24 hr 05/24/24 19:20 05/24/24 19:37 05/24/24 22:18 Temperature 97.9 F Pulse Rate 104 H 86 89 Respiratory Rate 18 20 16 Blood Pressure 134/72 133/74 110/53 L Pulse Oximetry 100 97 100 Oxygen Delivery Method Room Air Room Air Room Air 05/24/24 22:28 Temperature 98.0 F Pulse Rate 89 Respiratory Rate 16 Blood Pressure 110/53 L Pulse Oximetry 100 Oxygen Delivery Method Room Air BMI result Body Mass Index 24.3 Const Other: The patient looks as if he is an ordinarily healthy 23-year-old. Does not appear in obvious distress. HENMT Other: Face is symmetrical. Mucous membranes moist. The posterior pharynx appears normal. No tonsillar enlargement. No exudate. Eyes General: appearance normal, both eyes and all related structures Neck Other: No JVD, no lymphadenopathy, the neck is benign. Chest Other: No chest wall abnormalities with palpation Resp Effort & Inspection: normal respiratory effort Auscultation: clear to auscultation bilaterally Cardio Rate: regular rate Rhythm: regular rhythm Heart sounds: S1 normal heart sound present and S2 normal heart sound present GI Other: Abdomen is soft and nontender. Skin Other: Skin is dry and unremarkable Neuro Other: And alert with a normal mental status. Speech is clear. Face symmetrical. Moves his extremities normally Extrem Other: No calf swelling or tenderness, no asymmetry, no edema Course Course Course Narrative: RME: Done by EDUIN López. 23-year-old male presents to the ED for chest pain shortness of breath. Chest pain described as palpitations. Patient denies any URI symptoms. Patient denies any leg swelling calf pain, recent long travel recent surgery. Lungs are clear no leg pain. EKG chest x-ray labs ordered Medical Decision Making Medical Decision Making [facility] Narrative: The patient is a 23-year-old who does not have a significant past medical history who presents with 3 or 4 days of chest discomfort associated with palpitations, shortness of breath, and dizziness. There is no history of asthma. He does not sound wheezy on exam. He does not seem short of breath. He denies any drug use. His EKG shows normal sinus rhythm with a normal rate negative. Labs including white blood count and differential are unremarkable. Troponin is negative. D-dimer is normal. Clinically the patient does not appear unwell. He seems to have an essentially negative workup. I think he may be discharged with the recommendations to use ibuprofen and Tylenol as needed for any discomfort. He should work on getting a primary care doctor. He should return to the emergency room if worse. Lab Data 05/24/24 20:02 05/24/24 20:02 Labs: Lab Results 05/24/24 05/24/24 Range/Units 19:44 20:02 WBC 7.1 (4.8-10.8) X10*3/uL RBC 5.29 (4.60-5.80) X10*6/uL Hgb 15.7 (14.0-18.0) g/dl Hct 45.5 (42.0-52.0) % MCV 86.0 (80.0-98.0) fL MCH 29.7 (27.0-33.0) pg MCHC 34.5 (31.0-36.0) g/dl RDW 12.2 (11.0-16.0) % Plt Count 301 (160-400) X10*3/uL MPV 9.8 (9.4-12.4) fL Immature Gran % (Auto) 0.3 (0.0-0.4) % Neut % (Auto) 66.3 (45-73) % Lymph % (Auto) 19.3 L (20-40) % [place] % (Auto) 11.1 H (2-11) % Eos % (Auto) 2.4 (0-4) % Baso % (Auto) 0.6 (0-2) % Lymph # (Auto) 1.4 (1.2-4.9) X10*3/uL [place] # (Auto) 0.8 (0.1-1.2) X10*3/uL Eos # (Auto) 0.2 (0.0-0.4) X10*3/uL Baso # (Auto) 0.0 (0.0-0.2) X10*3/uL Abs Immat Gran (auto) 0.02 (0.00-0.03) X10*3/uL Absolute Neuts (auto) 4.7 (2.0-8.3) x10*3/uL Absolute Nucleated RBC 0.000 (0.0-0.012) X10*3/uL Nucleated RBC % (auto) 0.0 (0.0-0.2) /100WBC PT 11.1 (10.9-12.4) SEC INR 1.0 (0.9-1.1) APTT 31.7 (26.0-36.8) SEC D-Dimer High Sensitivty 182 NG/ML Sodium 141 (135-145) mmol/L Potassium 3.4 (3.3-5.1) mmol/L Chloride 107 (96-108) mmol/L Carbon Dioxide 25 (22-29) mmol/L Anion Gap 12 (12-20) BUN 11 (9-16) mg/dL Creatinine 1.03 (0.5-1.4) mg/dL Estim Creat Clear Calc 101.5 Estimated GFR > 60 Random Glucose 109 (60-115) mg/dL Calcium 9.4 (8.4-10.2) mg/dL Total Bilirubin 0.4 (0.0-1.0) mg/dL AST 18 (5-37) U/L ALT 30 (0-40) U/L Alkaline Phosphatase 79 (39-117) U/L Troponin I High Sens < 2.7 (<3.5-35.0) ng/L B-Natriuretic Peptide < 10 (<100) pg/mL Total Protein 7.5 (6.5-8.0) g/dL Albumin 4.4 (3.5-5.0) g/dL TSH 3.92 (0.32-4.0) uIU/mL Influenza Type A (PCR) NEGATIVE (Negative) Influenza Type B (PCR) NEGATIVE (Negative) RSV RNA Qual (PCR) NEGATIVE (Negative) SARS-CoV-2 RNA (RT-PCR) NEGATIVE (Negative) Independent Interpretation I performed an independent interpretation of an: EKG Interpretation: EKG at 19:46 shows normal sinus rhythm with a sinus arrhythmia at 75 beats per minute. It is a normal EKG. Discharge Plan Discharge Clinical Impression: Chest discomfort Patient Disposition: Home, Self-Care Additional Instructions: Your testing in the emergency room today seems very reassuring. There is no explanation for your symptoms but all of the test that we have done are very benign and I think we have excluded all dangerous processes. You may use ibuprofen and/or acetaminophen as needed for any discomfort. Please work on getting insurance and trying to get a new local doctor. You may try the [facility]. Return to the emergency room if you feel significantly worse. Prescriptions: No Action polyethylene glycol 3350 [Miralax] 17 gram/dose powder 17 g PO DAILY Qty: 119 0RF Rx Instructions: drink plenty of water with this medication and throughout the day naproxen 500 mg tablet 500 mg PO BID PRN (Reason: pain) 7 Days Qty: 14 0RF doxycycline hyclate 100 mg capsule 100 mg PO BID 10 Days Qty: 20 0RF cephalexin 500 mg tablet 500 mg PO Q6H 10 Days Qty: 40 0RF ondansetron 4 mg tablet,disintegrating 4 mg PO Q8H PRN (Reason: nausea and vomiting) Qty: 20 0RF Referrals: [facility] [Provider Group] Interventions: ED Discharge Assessment Last Done: 05/24/24 22:28 Discharge Date/Time: 05/24/24 22:31 Print Language: Ukrainian
[2024-05-24 19:37] VITALS: BP 133/74; PULSE 86; RESP 20; O2SAT 97
--- NOTE | 2024-05-24 19:48 | PC.NURSE ---
Pt a&ox4, no signs of distress. Pt denies chest pain at this time Pt swabbed and sent Pt changed into hospital attire Xray completed Plan of care ongoing.
[2024-05-24 20:06] LABS: MANUAL DIFF FLAG NO
[2024-05-24 20:07] LABS: Basophils Percent Auto 0.6 % (0-2); Eosinophils Absolute Auto 0.2 X10*3/uL (0.0-0.4); Eosinophils Percent Auto 2.4 % (0-4); Hematocrit 45.5 % (42.0-52.0); Hemoglobin 15.7 g/dl (14.0-18.0); Imm Gran Abs Auto 0.02 X10*3/uL (0.00-0.03); Imm Gran Pct Auto 0.3 % (0.0-0.4); Lymphocytes Absolute Auto 1.4 X10*3/uL (1.2-4.9); Lymphocytes Percent Auto 19.3 % (20-40); Mean Corpuscular HGB Conc 34.5 g/dl (31.0-36.0); Mean Corpuscular Hemoglobin 29.7 pg (27.0-33.0); Mean Platelet Volume 9.8 fL (9.4-12.4); Monocytes Absolute Auto 0.8 X10*3/uL (0.1-1.2); Monocytes Percent Auto 11.1 % (2-11); Neutrophils Absolute Auto 4.7 x10*3/uL (2.0-8.3); Neutrophils Percent Auto 66.3 % (45-73); Platelet Count 301 X10*3/uL (160-400); Red Blood Count 5.29 X10*6/uL (4.60-5.80); Red Cell Distribution Width 12.2 % (11.0-16.0); White Blood Count 7.1 X10*3/uL (4.8-10.8)
[2024-05-24 20:26] LABS: Influenza A PCR NEGATIVE (Negative); Influenza B PCR NEGATIVE (Negative); Resp Syncy Virus RNA Qual PCR NEGATIVE (Negative); SARS COV2 PCR INHOUSE NEGATIVE (Negative)
[2024-05-24 20:28] LABS: B Type Natriuretic Peptide < 10 pg/mL (<100)
[2024-05-24 20:29] LABS: Troponin-I High Sensitivity < 2.7 ng/L (<3.5-35.0)
[2024-05-24 20:30] LABS: Alanine Aminotransferase 30 U/L (0-40); Albumin Level 4.4 g/dL (3.5-5.0); Alkaline Phosphatase 79 U/L (39-117); Anion Gap 12 (12-20); Aspartate Amino Transferase 18 U/L (5-37); Bilirubin Total 0.4 mg/dL (0.0-1.0); Blood Urea Nitrogen 11 mg/dL (9-16); Calcium 9.4 mg/dL (8.4-10.2); Carbon Dioxide 25 mmol/L (22-29); Chloride 107 mmol/L (96-108); Creatinine Clr Calc Pharmacy 101.5; Estimated Glomerular Filt Rate > 60; Glucose Random 109 mg/dL (60-115); Potassium 3.4 mmol/L (3.3-5.1); Sodium 141 mmol/L (135-145); Total Protein 7.5 g/dL (6.5-8.0)
[2024-05-24 20:44] LABS: TSH reflex Free T4 3.92 uIU/mL (0.32-4.0)
[2024-05-24 20:56] LABS: Prothrombin Time 11.1 SEC (10.9-12.4)
[2024-05-24 20:59] LABS: Partial Thromboplastin Time 31.7 SEC (26.0-36.8)
[2024-05-24 21:10] LABS: D Dimer High Sensitivity 182 NG/ML
[2024-05-24 22:18] VITALS: BP 110/53; PULSE 89; RESP 16; O2SAT 100
[2024-05-24 22:28] VITALS: BP 110/53; PULSE 89; RESP 16; TEMP 36.7; O2SAT 100
== END 2024-05-24 22:31 | disposition home or self-care (01) ==
PROVIDERS: Physician Assistant; Emergency Provider Emergency Medicine
DX: R07.89 Other chest pain (principal); I49.9 Cardiac arrhythmia, unspecified; R00.2 Palpitations; R06.02 Shortness of breath; Z79.899 Other long term (current) drug therapy; Z03.818 Encounter for observation for suspected exposure to other biological agents ruled out
CPT/HCPCS: 0241U; 36415; 71045; 80053; 83880; 84443; 84484; 85025; 85379; 85610; 85730; 93005; 99285

== ENCOUNTER 2024-05-28 10:37 | Outpatient (REF) | payer OTHER, SELFPAY ==
[2024-05-28 12:02] LABS: Basophils Percent Auto 0.5 % (0-2); Eosinophils Percent Auto 0.7 % (0-4); Hematocrit 47.6 % (42.0-52.0); Hemoglobin 16.2 g/dl (14.0-18.0); Imm Gran Abs Auto 0.02 X10*3/uL (0.00-0.03); Imm Gran Pct Auto 0.3 % (0.0-0.4); Lymphocytes Absolute Auto 0.9 X10*3/uL (1.2-4.9); Lymphocytes Percent Auto 14.7 % (20-40); MANUAL DIFF FLAG NO; Mean Corpuscular Hemoglobin 29.5 pg (27.0-33.0); Mean Corpuscular Volume 86.5 fL (80.0-98.0); Mean Platelet Volume 10.5 fL (9.4-12.4); Monocytes Absolute Auto 0.6 X10*3/uL (0.1-1.2); Monocytes Percent Auto 9.9 % (2-11); Neutrophils Absolute Auto 4.5 x10*3/uL (2.0-8.3); Neutrophils Percent Auto 73.9 % (45-73); Platelet Count 329 X10*3/uL (160-400); Red Cell Distribution Width 11.9 % (11.0-16.0)
[2024-05-28 12:15] LABS: Estimated Average Glucose 111 mg/dL; Hemoglobin A1c % 5.5 % (<6.0)
[2024-05-28 12:33] LABS: Alanine Aminotransferase 30 U/L (0-40); Albumin Level 4.5 g/dL (3.5-5.0); Alkaline Phosphatase 85 U/L (39-117); Anion Gap 12 (12-20); Aspartate Amino Transferase 20 U/L (5-37); Bilirubin Total 0.5 mg/dL (0.0-1.0); Blood Urea Nitrogen 14 mg/dL (9-16); Calcium 10.6 mg/dL (8.4-10.2); Carbon Dioxide 25 mmol/L (22-29); Chloride 107 mmol/L (96-108); Estimated Glomerular Filt Rate > 60; Glucose Random 95 mg/dL (60-115); Potassium 3.8 mmol/L (3.3-5.1); Sodium 140 mmol/L (135-145); Total Protein 7.8 g/dL (6.5-8.0)
[2024-05-28 12:35] LABS: TSH reflex Free T4 2.47 uIU/mL (0.32-4.0)
[2024-05-28 12:38] LABS: HIV AB/AG Nonreactive (Nonreactive); HIV Num 1 0.06 S/CO (0.00-0.99)
[2024-05-28 13:00] LABS: Folate 13.1 ng/mL (> or = 4.0); Vitamin B12 413 pg/mL (200-900)
[2024-05-29 14:48] LABS: RPR Rapid Plasma Reagin NON-REACTIVE (NON-REACTIVE)
== END 2024-05-28 10:38 | disposition home or self-care (01) ==
LOC: HO.HHCL 10:37
PROVIDERS: Visit Provider Internal Medicine
DX: G43.E09 Chronic migraine with aura, not intractable, without status migrainosus (principal); Z13.1 Encounter for screening for diabetes mellitus
CPT/HCPCS: 36415; 80053; 82607; 82746; 83036; 84443; 85025; 86592; 87389

== ENCOUNTER 2024-06-02 18:05 | Emergency (ER) | payer OTHER, SELFPAY ==
--- NOTE | ~2024-06-02 | CT_ITS ---
EXAMINATION: CT HEAD WITHOUT IV CONTRAST CLINICAL INFORMATION: headache COMPARISON: None TECHNIQUE: Contiguous axial imaging was performed from the skull base to vertex without intravenous contrast. Sagittal and coronal reformatted images were obtained. This CT examination was performed using dose optimization techniques as appropriate, variously including the following: * Automated exposure control * Adjustment of mA and/or kV according to patient size (this includes techniques or standardized protocols for targeted exams where dose is matched to indication/reason for exam; i.e. extremities or head) Use of iterative reconstruction technique DLP: 584 mGy-cm FINDINGS: No acute osseous or soft tissue abnormality. The mastoid air cells and visualized portions of the paranasal sinuses are well aerated. There is no evidence of acute intracranial hemorrhage or territorial infarction. No abnormal mass effect or midline shift is seen. Xavier to white matter differentiation is well preserved. No extra-axial fluid collections are identified. No hydrocephalus. No significant volume loss. There is no abnormal attenuation within the brain parenchyma. CT/CT head/brain wo IV con IMPRESSION: No acute intracranial abnormality including hemorrhage, mass effect, hydrocephalus, or acute territorial edematous infarction. Electronically signed by: Lorne Church MD 06/02/2024 07:39 PM EDT
[2024-06-02 18:20] VITALS: BP 122/60; PULSE 102; RESP 16; TEMP 36.9; O2SAT 99; BMI 24.9
--- NOTE | 2024-06-02 18:22 | ED.GENADULT ---
HPI - General Adult General Chief complaint: Headache Stated complaint: migraine, head pressure, dizzy Time Seen by Provider: 06/02/24 20:31 Source: patient Mode of arrival: ambulatory Limitations: no limitations History of Present Illness HPI narrative: Patient is a 11-year-old male presents emergency department for evaluation. He reports in the past she has experienced headaches typically alleviated with [id number] medication. He was evaluated at [facility] approximately 1 week ago due to progressive posterior headache, dizziness described as ?feeling confused? and an itching sensation to his scalp, ?ants on my head?. He was given prescription for sumatriptan, hydroxyzine, and amitriptyline. He reports that his symptoms have somewhat improved but continues to experience an intermittent headache. He is due to work tomorrow and does not feel he can work with the way that he is feeling. He denies any recent head injury, associated neck pain or neck stiffness, URI symptoms, fevers or chills, vision changes, shortness of breath, numbness or tingling of the extremities. Related Data Previous Rx's ?Medication ?Instructions ?Recorded polyethylene glycol 3350 17 17 g PO DAILY #119 grams 06/02/22 gram/dose oral powder (Miralax) cephalexin 500 mg tablet 500 mg PO Q6H 10 days #40 tabs 12/29/22 doxycycline hyclate 100 mg capsule 100 mg PO BID 10 days #20 caps 12/29/22 naproxen 500 mg tablet 500 mg PO BID PRN pain 7 days #14 03/22/23 tabs ondansetron 4 mg disintegrating 4 mg PO Q8H PRN nausea and 06/27/23 tablet vomiting #20 tabs Allergies Allergy/AdvReac Type Severity Reaction Status Date / Time No Known Allergies Allergy Verified 06/02/24 18:23 [No Known Allergies*] Review of Systems Review of Systems: Yes all other systems are reviewed and are negative PMFSH Past Medical History Attestation statement: The following information was validated with the patient. Source: old records reviewed Medical History Gastroschisis, congenital No known health problems Social History Social History Alcohol intake: never Patient Tobacco Use Status: Never used Tobacco Advance Directives: No Advance Directives Information Provided: No Physical Exam ED Vital Signs: Vital Signs - 24 hr 06/02/24 18:20 06/02/24 20:28 Temperature 98.5 F 98.2 F Pulse Rate 102 H 108 H Respiratory Rate 16 16 Blood Pressure 122/60 125/69 Pulse Oximetry 99 98 Oxygen Delivery Method Room Air Room Air BMI result Body Mass Index 24.9 Appearance: Alert.?Oriented to person, place and time. No acute distress.?Normal affect. Eyes: Pupils equal, round and reactive to light.? EOMI. No nystagmus. ENT: Pharynx normal.?? Neck: Normal inspection.? Neck supple.??No nuchal rigidity. Full range of motion. CVS: Heart sounds normal. Normal heart rate and rhythm.? Pulses normal.?? Respiratory: No respiratory distress.? Lung sounds clear to auscultation bilaterally?? Abdomen: Soft and non-tender. Normoactive bowel sounds. Skin: Skin warm and dry.? Normal skin color.? ?? Extremities: No lower extremity edema.? Neuro: Moves all extremities spontaneously. Sensation intact bilaterally. CN II-XII intact. No focal neuro deficits. Ambulates with normal steady gait. Course Course Course Narrative: RME, this is a rapid medical exam performed by Fabricio Gilliland please refer to primary provider for complete H&P- 23-year-old male presents for evaluation of headache and dizziness for the last 6 days. He was seen at [facility] last Saturday and reports his symptoms have not improved. And he complains of lightheadedness and occasional confusion. Plan for labs, CT scan of the brain. The patient has no difficulty touching his chin to his chest Medical Decision Making Medical Decision Making MDM Narrative: Patient is a 23-year-old male presents emergency department for evaluation of intermittent headache, as per HPI has somewhat responded to sumatriptan, amitriptyline, and hydroxyzine though unfortunately he does not feel as though he is able to return to work in the next day. He continues experiencing ?dizziness? described as a confusion sensation, with pressure to the back of his head. Though as aforementioned medication does help with these symptoms. CT of the head was obtained and is without acute intracranial pathology, no intracranial mass or evidence of ICH. He has no focal neurological deficits on examination. Reviewed serum labs obtained; CBC without leukocytosis anemia or thrombocytopenia no electrolyte derangements, no KAITLIN. COVID-19 testing negative. At this time I feel that he is stable for discharge and outpatient follow-up with his primary care doctor in regards to his migraines Differential Diagnosis Differential Diagnoses: The differential diagnosis associated with the presentation includes (See narrative above) Admission/Observation Consideration of admission/observation: Escalation of care including admission/observation considered (See narrative above) Lab Data MDM Lab Attestation statement: I reviewed the patient's lab results. (See narrative above) 06/02/24 18:45 06/02/24 18:45 Labs: Lab Results 06/02/24 Range/Units 18:45 WBC 8.4 (4.8-10.8) X10*3/uL RBC 5.27 (4.60-5.80) X10*6/uL Hgb 15.7 (14.0-18.0) g/dl Hct 44.8 (42.0-52.0) % MCV 85.0 (80.0-98.0) fL MCH 29.8 (27.0-33.0) pg MCHC 35.0 (31.0-36.0) g/dl RDW 12.1 (11.0-16.0) % Plt Count 326 (160-400) X10*3/uL MPV 9.9 (9.4-12.4) fL Immature Gran % (Auto) 0.5 H (0.0-0.4) % Neut % (Auto) 74.0 H (45-73) % Lymph % (Auto) 16.7 L (20-40) % [place] % (Auto) 7.4 (2-11) % Eos % (Auto) 0.9 (0-4) % Baso % (Auto) 0.5 (0-2) % Lymph # (Auto) 1.4 (1.2-4.9) X10*3/uL [place] # (Auto) 0.6 (0.1-1.2) X10*3/uL Eos # (Auto) 0.1 (0.0-0.4) X10*3/uL Baso # (Auto) 0.0 (0.0-0.2) X10*3/uL Abs Immat Gran (auto) 0.04 H (0.00-0.03) X10*3/uL Absolute Neuts (auto) 6.2 (2.0-8.3) x10*3/uL Absolute Nucleated RBC 0.000 (0.0-0.012) X10*3/uL Nucleated RBC % (auto) 0.0 (0.0-0.2) /100WBC Sodium 142 (135-145) mmol/L Potassium 3.6 (3.3-5.1) mmol/L Chloride 108 (96-108) mmol/L Carbon Dioxide 24 (22-29) mmol/L Anion Gap 14 (12-20) BUN 17 H (9-16) mg/dL Creatinine 1.24 (0.5-1.4) mg/dL Estim Creat Clear Calc 81.2 Estimated GFR > 60 Random Glucose 132 H (60-115) mg/dL Calcium 9.7 D (8.4-10.2) mg/dL Total Bilirubin 0.4 (0.0-1.0) mg/dL AST 18 (5-37) U/L ALT 28 (0-40) U/L Alkaline Phosphatase 79 (39-117) U/L Total Protein 7.7 (6.5-8.0) g/dL Albumin 4.5 (3.5-5.0) g/dL Lipase 26 (8-78) U/L COVID-19 (BASIM) Negative (Negative) COVID-19 Clin Com See Note Independent Interpretation I performed an independent interpretation of an: CT Scan (No ICH) Radiology Impression Discussion of test interpretation with radiology: I have reviewed the radiologist's reading. Radiologist Impression: CT/CT head/brain wo IV con IMPRESSION: No acute intracranial abnormality including hemorrhage, mass effect, hydrocephalus, or acute territorial edematous infarction. External Record Review External record reviewed: Outpatient record Prescription Management I considered prescription management with: Pain Medication (Continue as prescribed outpatient) Discharge Plan Discharge Clinical Impression: Migraine Patient Disposition: Home, Self-Care Instructions: Migraine Headache (ED) Additional Instructions: Continue taking your medications as prescribed by your doctor. As discussed blood work today was very reassuring, CT scan of the head does not show any abnormality. You may return to emergency department any new or worsening symptoms or concerns. Prescriptions: No Action polyethylene glycol 3350 [Miralax] 17 gram/dose powder 17 g PO DAILY Qty: 119 0RF Rx Instructions: drink plenty of water with this medication and throughout the day naproxen 500 mg tablet 500 mg PO BID PRN (Reason: pain) 7 Days Qty: 14 0RF doxycycline hyclate 100 mg capsule 100 mg PO BID 10 Days Qty: 20 0RF cephalexin 500 mg tablet 500 mg PO Q6H 10 Days Qty: 40 0RF ondansetron 4 mg tablet,disintegrating 4 mg PO Q8H PRN (Reason: nausea and vomiting) Qty: 20 0RF Referrals: Physician,None [Primary Care Provider] - Stand Alone Forms: Work/School Release Print Language: Danish
[2024-06-02 18:57] LABS: MANUAL DIFF FLAG NO
[2024-06-02 18:58] LABS: Basophils Percent Auto 0.5 % (0-2); Eosinophils Absolute Auto 0.1 X10*3/uL (0.0-0.4); Eosinophils Percent Auto 0.9 % (0-4); Hematocrit 44.8 % (42.0-52.0); Hemoglobin 15.7 g/dl (14.0-18.0); Imm Gran Abs Auto 0.04 X10*3/uL (0.00-0.03); Imm Gran Pct Auto 0.5 % (0.0-0.4); Lymphocytes Absolute Auto 1.4 X10*3/uL (1.2-4.9); Lymphocytes Percent Auto 16.7 % (20-40); Mean Corpuscular Hemoglobin 29.8 pg (27.0-33.0); Mean Platelet Volume 9.9 fL (9.4-12.4); Monocytes Absolute Auto 0.6 X10*3/uL (0.1-1.2); Monocytes Percent Auto 7.4 % (2-11); Neutrophils Absolute Auto 6.2 x10*3/uL (2.0-8.3); Platelet Count 326 X10*3/uL (160-400); Red Blood Count 5.27 X10*6/uL (4.60-5.80); Red Cell Distribution Width 12.1 % (11.0-16.0); White Blood Count 8.4 X10*3/uL (4.8-10.8)
[2024-06-02 19:14] LABS: COVID-19 Test Negative (Negative); IDNOW Serial# 08D9AD1C
[2024-06-02 19:16] LABS: Alanine Aminotransferase 28 U/L (0-40); Albumin Level 4.5 g/dL (3.5-5.0); Alkaline Phosphatase 79 U/L (39-117); Anion Gap 14 (12-20); Aspartate Amino Transferase 18 U/L (5-37); Bilirubin Total 0.4 mg/dL (0.0-1.0); Blood Urea Nitrogen 17 mg/dL (9-16); Calcium 9.7 mg/dL (8.4-10.2); Carbon Dioxide 24 mmol/L (22-29); Chloride 108 mmol/L (96-108); Creatinine Clr Calc Pharmacy 81.2; Estimated Glomerular Filt Rate > 60; Glucose Random 132 mg/dL (60-115); Lipase 26 U/L (8-78); Potassium 3.6 mmol/L (3.3-5.1); Sodium 142 mmol/L (135-145); Total Protein 7.7 g/dL (6.5-8.0)
[2024-06-02 20:28] VITALS: BP 125/69; PULSE 108; RESP 16; TEMP 36.8; O2SAT 98
[2024-06-02 21:58] VITALS: BP 121/69; PULSE 99; RESP 18; TEMP 36.7; O2SAT 98
== END 2024-06-02 22:01 | disposition home or self-care (01) ==
PROVIDERS: Physician Assistant; Emergency Provider Internal Medicine
DX: G43.909 Migraine, unspecified, not intractable, without status migrainosus (principal); Z11.52 Encounter for screening for COVID-19; Z79.899 Other long term (current) drug therapy
CPT/HCPCS: 36415; 70450; 80053; 83690; 85025; 87635; 99283; 99284

== ENCOUNTER 2024-08-08 08:19 | Emergency (ER) | payer MEDICAID, SELFPAY ==
[2024-08-08 08:21] VITALS: BP 141/60; PULSE 100; RESP 19; TEMP 36.6; O2SAT 99; BMI 24.2
--- NOTE | 2024-08-08 09:19 | PC.NURSE ---
pt a&ox3, pt non traumatic lt sub scapula/sub scapula pain 02/09, pt states hes had this before and was relieved with ibuprofen. pt awaiting to be seen by provider
--- NOTE | 2024-08-08 09:19 | ED.BACK ---
HPI - Back Pain/Injury General Chief Complaint: Back Pain/Injury Stated Complaint: back pain Time Seen by Provider: 08/08/24 09:06 Source: patient Mode of arrival: ambulatory Limitations: no limitations History of Present Illness ED Provider: VLADIMIR CASPER PA-C HPI Narrative: 23 year old male with no significant pmhx presents to the ED today for evaluation of atraumatic left upper back/ neck pain x1 day. Reports pain extending from left side of his neck into his left upper back/trapezius muscle. Admits the area feels like it is spasming. Has not trialed any OTC pain medications for this. Admits to working a job that involves heavy lifting. Denies blunt trauma or injury to the neck/back. Denies IV drug use. Denies history of spinal surgery. Denies fever, chills, bowel or bladder incontinence or retention, numbness/tingling/weakness in the lower extremities, saddle anesthesia. Related Data Previous Rx's ?Medication ?Instructions ?Recorded polyethylene glycol 3350 17 17 g PO DAILY #119 grams 06/02/22 gram/dose oral powder (Miralax) cephalexin 500 mg tablet 500 mg PO Q6H 10 days #40 tabs 12/29/22 doxycycline hyclate 100 mg capsule 100 mg PO BID 10 days #20 caps 12/29/22 naproxen 500 mg tablet 500 mg PO BID PRN pain 7 days #14 03/22/23 tabs ondansetron 4 mg disintegrating 4 mg PO Q8H PRN nausea and 06/27/23 tablet vomiting #20 tabs cyclobenzaprine 5 mg tablet 5 mg PO Q8H #7 tabs 08/08/24 lidocaine 5 % topical patch 1 patch topical DAILY #15 ea 08/08/24 (Lidoderm) Allergies Allergy/AdvReac Type Severity Reaction Status Date / Time No Known Allergies Allergy Verified 08/08/24 08:22 [No Known Allergies*] Review of Systems Review of Systems: Constitutional: No fever, chills, fatigue, night sweats, weight changes ENT/Mouth: No ear pain, hearing loss, nasal congestion, sinus pain, rhinorrhea, sore throat Eyes: No eye pain, swelling, redness, vision changes, discharge Cardio: No chest pain, palpitations, OCHOA, orthopnea, peripheral edema Pulm: No SOB, cough, sputum, wheezing, dyspnea, hemoptysis GI: No nausea, vomiting, hematemesis, abdominal pain, diarrhea, constipation, hematochezia, melena : No irregular bleeding, dysuria, frequency, urgency, hesitancy, hematuria, flank pain, urinary flow changes, urinary incontinence or retention MSK: +back/ neck pain, joint pain, myalgias Skin: No lesions, rashes Neuro: No weakness, numbness, paresthesias, LOC, dizziness, headache All other systems reviewed and are negative. [facility] Past Medical History Attestation statement: The following information was validated with the patient. Source: old records reviewed and nursing notes reviewed Medical History Gastroschisis, congenital No known health problems Social History Social History Alcohol intake: never Patient Tobacco Use Status: Never used Tobacco Advance Directives: No Advance Directives Information Provided: No Do you have a plan to hurt others: No Plan Physical Exam Vital Signs: Vital Signs: Last Vital Signs Temp 98 F 08/08/24 10:08 Pulse 92 08/08/24 10:08 Resp 18 08/08/24 10:08 BP 138/62 08/08/24 10:08 Pulse Ox 99 08/08/24 10:08 O2 Del Method Room Air 08/08/24 10:08 BMI result Body Mass Index 24.2 vital signs stable, afebrile General: Well appearing, in no acute distress. Skin: Warm, dry, intact. No rashes or lesions. Head: Normocephalic, atraumatic. EENT: Hearing is intact b/l. Conjunctiva clear. PERRLA. EOM intact. Moist mucous membranes.? Neck: +palpable spasm of left cervical paraspinal muscles extending to left trapezius, ttp. no midline cervical or thoracic spinous tenderness. No step off deformity. Cardiac: Chest wall symmetric. RRR Lungs: Normal respiratory effort without accessory muscle use. CTA bilaterally. Abdomen: Soft, non-tender, non-distended. No rebound tenderness or guarding. Positive BS x4. Back: No midline spinous. No step off deformity. Ext: Upper and lower extremities atraumatic, without tenderness, deformity, swelling or erythema. Full ROM throughout. Neuro: AOx3. Normal speech. CN 2-12 grossly intact. Strength 5/5 intact throughout. No saddle anesthesia. Sensation intact to light touch. NV intact distally. Ambulating with steady gait. Psych: Appropriate mood and affect. Responds appropriately to questions. Course Course Course Narrative: 938 -- physical exam is concerning for muscle spasm. He reports improvement in pain with lidocaine patch. will send lido patches and flexeril to pharmacy for treatment. i do not feel imaging of the c spine is warranted at this time. Patient has remained stable throughout ED visit today. Discussed worrisome signs and symptoms and when to return to the ED. All questions answered at this time. Patient is agreeable with disposition and stable for discharge. Medications Administered Discontinued Medications Generic Name Dose Route Start Last Admin Trade Name Freq PRN Reason Stop Dose Admin Lidocaine 1 patch 08/08/24 09:36 08/08/24 10:06 Lidocaine 4 % Patch Adh..Patch TRANSDERMA 08/08/24 09:37 1 patch ONCE ONE Administration Protocol Medical Decision Making Medical Decision Making [facility] Narrative: 23 year old male with no significant pmhx presents to the ED today for evaluation of atraumatic left upper back/ neck pain x1 day. Vital signs stable. afebrile. he is nontoxic appearing and in NAD. Exam is significant for palpable spasm of left cervical paraspinal muscles extending to left trapezius, ttp. no midline cervical or thoracic spinous tenderness. No step off deformity. Ambulating with steady gait. Concern for MSK sprain/strain, fracture, subluxation, disc herniation, sciatica. No red flag symptoms. Unlikely cord compression, cauda equina, Guillain-Cranberry, epidural abscess. Plan for pain control. Differential Diagnosis Differential Diagnoses: The differential diagnosis associated with the presentation includes as above Admission/Observation Not indicated. External Record Review External record reviewed: Inpatient record Tests considered The following testing was considered but not selected: I considered obtaining imaging however patient does not have midline tenderness, no concern for fracture. Prescription Management I considered prescription management with: Other (flexeril, lido patch) Social Determinants Patient?s care significantly limited by Social Determinants of Health including: Other Social Determinant of Health Critical Care Time Critical Care Time Critical Care Time: No Discharge Plan Discharge Clinical Impression: Cervical muscle strain Patient Disposition: Home, Self-Care Instructions: Cervical Strain (ED), Muscle Strain (ED) Additional Instructions: You have been evaluated in the Emergency Department today for upper back/ neck pain. Your evaluation did not find evidence of medical conditions requiring emergent intervention at this time. I recommend you take 600mg ibuprofen every 6 hours or Tylenol 650mg every 6 hours as needed for pain. If needed, you can alternate these medications so that you take one medication every 3 hours. For instance, at noon take ibuprofen, then at 3pm take Tylenol, then at 6pm take ibuprofen. Flexeril has been sent to your pharmacy for you to take as needed for muscle pain. Do not take this while drinking, driving or operating heavy machinery as it can make you drowsy. Lidocaine patches have been sent to your pharmacy for you to apply to painful areas. Please schedule an appointment for follow up with your primary care provider this week. Return to the Emergency Department if you experience worsening pain, numbness, tingling, change of color in your toes, or any other concerning symptoms. Prescriptions: New lidocaine [Lidoderm] 5 % adhesive patch,medicated 1 patch topical DAILY Qty: 15 0RF Rx Instructions: leave on most painful area for up to 12 hrs cyclobenzaprine 5 mg tablet 5 mg PO Q8H Qty: 7 0RF No Action polyethylene glycol 3350 [Miralax] 17 gram/dose powder 17 g PO DAILY Qty: 119 0RF Rx Instructions: drink plenty of water with this medication and throughout the day naproxen 500 mg tablet 500 mg PO BID PRN (Reason: pain) 7 Days Qty: 14 0RF doxycycline hyclate 100 mg capsule 100 mg PO BID 10 Days Qty: 20 0RF cephalexin 500 mg tablet 500 mg PO Q6H 10 Days Qty: 40 0RF ondansetron 4 mg tablet,disintegrating 4 mg PO Q8H PRN (Reason: nausea and vomiting) Qty: 20 0RF Referrals: [facility] [place] Family Medicine [Provider Group] [facility] [place] [facility] [Provider Group] [facility] [place] [facility] [Provider Group] Stand Alone Forms: Work/School Release Interventions: ED Discharge Assessment Last Done: 08/08/24 10:08 Discharge Date/Time: 08/08/24 10:10 Print Language: French
[2024-08-08] MEDS: Lidocaine 4 % Patch ADH..PATCH 1 PATCH TRANSDERMA (10:06)
[2024-08-08 10:08] VITALS: BP 138/62; PULSE 92; RESP 18; TEMP 36.6; O2SAT 99
== END 2024-08-08 10:10 | disposition home or self-care (01) ==
PROVIDERS: Emergency Provider Emergency Medicine Emergency Medical Services
DX: S16.1XXA Strain of muscle, fascia and tendon at neck level, initial encounter (principal); X50.0XXA Overexertion from strenuous movement or load, initial encounter; Y93.89 Activity, other specified; Y92.59 Other trade areas as the place of occurrence of the external cause; Y99.0 Civilian activity done for income or pay
CPT/HCPCS: 99282; 99283

== ENCOUNTER 2025-08-10 09:03 | Outpatient (AMB) | payer MEDICAID, SELFPAY ==
--- NOTE | 2025-08-10 09:09 | A.OFFVIS_ITS ---
Vital Signs 08/10/25 09:28 Height 5 ft 7 in Weight 156 lb 4 oz BMI 24.5 Intake Visit Reasons: Ventral hernia Intake Note: This patient presents for an assessment for ventral hernia. Pt c/o; reports ventral hernia, occasional pain, reports occasional constipation. Clinical Medical Assistant Required: No Accompanied by: Self / Same As Patient Allergies No Known Allergies (No Known Allergies*) Allergy (Verified 08/10/25 09:25) HPI Comments Details: Patient has a history of gastroschisis as a baby and underwent definitive repair. Since then he has had irregularity in his anterior abdominal wall around the region of the umbilicus. He denies really any complaints except for occasional vague discomfort with rigorous physical exercise. He does not think it affects his life at all. He denies any GI complaints and reports no problems with ?indigestion or going to the bathroom?. He had a CT scan a couple years ago that was indicative of an intact anterior abdominal wall without evidence of hernia. 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 There was no evidence of volvulus. [facility] Medical History History of gastroschisis repair Gastroschisis, congenital No known health problems Family History Paternal Grandmother Cancer Social History Alcohol intake: never Patient Tobacco Use Status: Never used Tobacco Review of Systems Const All systems reviewed & are unremarkable except as noted in HPI and below Physical Exam Vital Signs: BMI result Body Mass Index 24.5 Const General: cooperative, healthy appearing and comfortable Orientation/consciousness: oriented to person, oriented to place and oriented to time HEENT Head: Yes normal to inspection, Yes normocephalic and Yes atraumatic Eyes Pupils: Equal, round and reactive pupils present EOM: EOMs intact bilaterally Neck Neck: Yes normal visual inspection Chest Chest palpation & inspection: normal inspection of the chest Resp Effort & Inspection: normal respiratory effort and able to speak in complete sentences Cardio Rate: regular rate Rhythm: regular rhythm GI Other: Soft scalp nontender nondistended. Irregularity about the region of the umbilicus in the central abdomen consistent with its her surgical history. He also displays some limited diastasis of the rectus with probable attenuation of the median raphe. I can not appreciate a hernia. No abnormalities palpable despite rigorous cough and Valsalva no evidence of fascial defect or protruding tissue. Neuro General: oriented to person, oriented to place and oriented to time Cranial nerves: Yes CN's II-XII intact bilaterally and Yes Equal, round and reactive pupils present Extrem General: Yes normal to inspection Assessment & Plan Assessment & Plan (1) Ventral hernia: Code(s): K43.9 - Ventral hernia without obstruction or gangrene Category: Medical Plan: I told the patient that I did not feel his presentation was consistent with a ventral hernia. He does have some abnormal contouring of the anterior abdominal wall however physical examination and radiographic interrogation of his abdomin al wall anatomy was not indicative of anything that could be construed as a true hernia. I asked him to follow up with us in approximately 6 months to 1 year for a recheck and I encouraged him to contact us should he have any questions or problems. He said he was very happy with that plan. Coding Level of Care Code New Pt Level 3 (42022) Diagnoses Ventral hernia K43.9 Time Spent (min) 30 Comment Patient visit, record review and coordination of care time
[2025-08-10 09:28] VITALS: BMI 24.5
== END 2025-08-10 09:33 | disposition home or self-care (01) ==
LOC: HO.HGS 09:04
PROVIDERS: PCP Internal Medicine; Visit Provider Surgery
DX: K43.9 Ventral hernia without obstruction or gangrene (principal)
CPT/HCPCS: 99203

== ENCOUNTER → 2025-08-10 09:03 | Outpatient (BNVA) | payer MEDICAID, SELFPAY | PROVIDERS: PCP Internal Medicine; Visit Provider Surgery | DX: K43.9 Ventral hernia without obstruction or gangrene (principal) | CPT/HCPCS: 99202 ==